=== PATIENT | male | born 1940 | race Hispanic/Latino ===

== ENCOUNTER 2016-07-17 20:07 | Inpatient (IN) | payer MEDICARE, OTHER ==
[~2016-07-17] VITALS: Ht 170.2 cm; Wt 62.0 kg
[~2016-07-17 20:07] MED LIST: KLO5T PO; MEGE40TA PO; METO25TA99 PO; QUET50TA PO
[2016-07-17 20:12] VITALS: BP 133/76; PULSE 96; O2SAT 96
[2016-07-17 20:48] LABS: BASOPHILS % (AUTO) 0 % (0-3); EOSINOPHILS % (AUTO) 0 % (0-5); MONOCYTES % (AUTO) 2.5 % (4-12); Mean Corpuscular Hemoglobin 32.3 pg (27.0-35.0); Mean Corpuscular Volume 93.6 fL (81-100); NEUTROPHILS % (AUTO) 94.9 % (40-74); Platelet Count 216 bil/L (150-400)
[2016-07-17 21:18] LABS: TROPONIN T < 0.010 ug/L (0.0-0.011)
--- NOTE | 2016-07-17 21:44 | ED.REPORT ---
HPI-Chest Pain 40 and Over Date of Service Jul 17, 2016 ED Provider: Toño Dickerson MD Patient is a 76 year old male with a history of hypertension, depression, and rectal adenocarcinoma status post diverting loop ileostomy in September 2013, and previous hospital admissions for hyponatremia and dehydration who presents to the ED complaining of increased weakness, fatigue, and shortness of breath onset 2 days ago. Per the patient's son, the patient had trouble walking, and is unbalanced when ambulating. Patient has had a decreased appetite, with decreased PO intake. Patient states that he has a productive cough, dizziness, and generalized myalgia. Patient reports dysuria and admits that he has previously had a UTI. The patient's son reports that the patient's is also currently ill and then the patient started feeling unwell. Patient has previously been admitted to the hospital under similar circumstances due to hyponatremia and dehydration, most recently in March 2016. Nursing Notes Stated Complaint: SHORTNESS OF BREATH Chief Complaint: General Complaint Nursing Notes Reviewed: Yes Allergies: Coded Allergies: No Known Allergies (Unverified , 07/18/16) Scheduled Megestrol Acetate (Megestrol Acetate) 40 Mg Tablet 40 MG PO BID Metoprolol Succinate ER (Metoprolol Succinate ER) 25 Mg Tab.er.24h 25 MG PO DAILY Quetiapine Fumarate (Seroquel) 50 Mg Tablet 50 MG PO BID Scheduled PRN Clonazepam (Clonazepam) 0.5 Mg Tab 0.25-0.5 MG PO BID PRN PRN For Anxiety General Time Seen by MD: 21:41 Chief Complaint Shortness of breath Hx Obtained From: Patient, Son Arrived By: Walk-in Sudden in Onset?: No Recent Healthcare: No recent hospitalization, Recent doctor visit Past Medical History Past Medical History 1. Rectal adenocarcinoma status post diverting loop ileostomy in September 2013 2. Recurrent episodes of hyponatremia and dehydration 3. Hypertension. 4. Hyperlipidemia. 5. Depression. 6. Anxiety. 7. Insomnia. 8. Pulmonary asbestosis. 9. Bilateral pleural plaques. 10. GERD 11. Hearing problems COPD arthritis gastroenteritis Past Surgical History Abdominal surgery for colon and rectal cancer. Hernia repair x2. Left hand surgery. Reports: Appendectomy Smoking History Current Every Day Smoker Social History Alcohol Use: "Social" Drug Use: Denies drug use Other Social History: Good social support, Local resident Ambulatory Status Independent Review of Systems Review of Systems Note: decreased appetite Respiratory: Reports: Prod cough, clear, Shortness of breath Musculoskeletal: Reports: Myalgia Neurologic: Reports: Problem walking Complete sys rev & neg: except as marked. Male: Reports Dysuria Physical Exam Initial Vital Signs Vital Signs (First) Date Time Temp Pulse Resp B/P Pulse Ox O2 Delivery O2 Flow Rate FiO2 07/17/16 20:12 96 133/76 96 Room Air 07/17/16 23:24 17 Initial VS: Reviewed, Vital signs normal General/Constitutional: Awake, Alert, No acute distress Distress / Hydration: Positive: Dehydration mild appears disheveled Respiratory / Chest: Atraumatic Diminished Breath Sounds: Positive: Decreased bilateral Wheezing / Retractions: Positive: Wheezing expiratory deep breathing causes cough Cardiovascular: Heart rate NL, Regular rhythm, Heart sounds NL Abdomen: Atraumatic, Soft, Non-tender Neck: Atraumatic, Supple Back: Atraumatic, No CVA tenderness Lower Extremity / Pelvis / MS: Atraumatic, No swelling, No edema Skin: Atraumatic, Color NL, No rash, Warm, Dry Neurologic: Oriented X3, Speech NL, No motor deficits, No sensory deficits Psychiatric: Affect NL, Mood NL Head / Eyes: Atraumatic, Normocephalic, PERRL, EOMI ENT: Atraumatic, Airway patent, Mucous membranes moist Upper Extremity / MS: Atraumatic, No swelling, No edema Interpretation & Diagnostics Lab Results Interpretation Result Diagram: 07/18/16 0505 07/18/16 0505 Test 07/17/16 20:19 07/17/16 20:25 07/17/16 23:45 Lactic Acid Level 1.0mmol/L (0.4-2.0) Troponin T < 0.010ug/L (0.0-0.011) Pro-B-Type Natriuretic Peptide 258.4pg/mL (0-486) Urine Color Yellow (YELLOW) Urine Appearance Clear (CLEAR,HAZY) Urine pH 6.0 (5.0-8.0) Urine Specific Roosevelt 1.025 (1.003-1.035) Urine Protein 30mg/dL (NEG,TRACE) Urine Glucose (UA) Negativemg/dL (NEGATIVE) Urine Ketones 15mg/dL (NEGATIVE) Urine Occult Blood Moderate (NEGATIVE) Urine Nitrite Negative (NEGATIVE) Urine Bilirubin Negative (NEGATIVE) Urine Urobilinogen Normalmg/dL (NORMAL) Urine Leukocyte Esterase Negative (NEGATIVE) Urine RBC 11-50/hpf (0-2) Urine WBC 6-10/hpf (0-5) Urine Epithelial Cells Occasional/hpf (NONE-MOD) Urine Crystals None seen (NONE SEEN) Urine Bacteria None/hpf (NONE-FEW) Urine Hyaline Casts None/lpf (NONE) Urine Granular Casts None seen (NONE SEEN) Urine Waxy Casts None seen (NONE SEEN) Urine Red Blood Cell Casts None seen (NONE SEEN) Urine White Blood Cell Casts None seen (NONE SEEN) Urine Mucus Present (None Seen) Urine Trichomonas None seen (NONE SEEN) Urine Yeast None (NONE SEEN) Urine Culture Reflexed Indicated Urine Osmolality 591mOs/kH2O (250-1200) Lab Results Interpretation: Hyponatremia ECG Interpretation ECG Interpretation: prolonged ME interval RBBB and LAFB probable left ventricular hypertrophy Interpreted by: ED physician Normal ECG Interpretation: Normal rate (91), Normal sinus rhythm X-Ray Chest Interpretation Chest Xray Interpretation: IMPRESSION: No interval change or acute disease. Chronic diffuse scarring/interstitial disease, as before. Bilateral pleural plaques. Disctated by: Tk Maher MD on 07/17/2016 at 21:22 View: Portable Interpretation / Wet Read by: Interpret - Radiologist Re-Eval/Medical Decision Med Decision/Clinical Course 76-year-old male who short of breath and weak, symptoms that are common when he gets recurrent hyponatremia. His sodium level is 126. No other significant abnormalities are found. He was given a liter of saline here and his repeat sodium was 125. He will be admitted to the hospitalist service. I attempted to contact Dr. Martinez to discuss hyponatremia treatment but he was not available. Time of Eval: 01:10 Re-Evaluation/Progress Note: Rechecked patient. Discussed results and plan for admittance. The patient understands and agrees to the plan to be admitted. All questions were addressed. Consultation #1: Referral / Consult Name: Christy Hartman DO Consulted With: Hospitalist Call Returned at: 01:05 Manager College: Agrees with eval, Agrees with plan, Accepts admit Consultation #2: Referral / Consult Name: Philippe Martinez DO Consulted With: Nephrology Requested Call at: 02:45 Note: Repeat sodium level went from 126 to 125 after 1liter of saline. Attempted to call Dr. Martinez but he did not answer and his message box was full. Counseled Regarding: Diagnosis, Lab results, Need for admission Discharge & Departure Primary Impression: Hyponatremia Additional Impression: UTI (urinary tract infection) Urinary tract infection type: site unspecified Hematuria presence: with hematuria Qualified Code: N39.0 - Urinary tract infection, site not specified Disposition: ADMITTED TO HOSPITAL (ERASED) Discharge Condition All VS Reviewed: Yes Condition: Stable Referrals: Maryjo Pope MD (PCP) [employer] Attestation Portions of this note were transcribed by Idalmis Lindquist and Tiffanie Maldonado. I, Dr. Dickerson personally performed the history, physical exam and medical decision-making; I reviewed and confirmed the accuracy of the information in the transcribed note. Signed by: Idalmis Lindquist and Cristal Silva, and 0349. copies to: Maryjo Pope MD, Toño Xiong MD Jul 17, 2016 21:44 Zoë Lindquist Jul 17, 2016 21:54 Tiffanie Maldonado Jul 17, 2016 23:24 Urine Trichomonas None seen (NONE SEEN) Urine Yeast None (NONE SEEN) Urine Culture Reflexed Indicated Lab Results Interpretation: Hyponatremia ECG Interpretation ECG Interpretation: prolonged ME interval RBBB and LAFB probable left ventricular hypertrophy Interpreted by: ED physician Normal ECG Interpretation: Normal rate (91), Normal sinus rhythm X-Ray Chest Interpretation Chest Xray Interpretation: IMPRESSION: No interval change or acute disease. Chronic diffuse scarring/interstitial disease, as before. Bilateral pleural plaques. Disctated by: Tk Maher MD on 07/17/2016 at 21:22 View: Portable Interpretation / Wet Read by: Interpret - Radiologist Re-Eval/Medical Decision Med Decision/Clinical Course 76-year-old male who short of breath and weak, symptoms that are common when he gets recurrent hyponatremia. His sodium level is 126. No other significant abnormalities are found. He was given a liter of saline here and his repeat sodium was 125. He will be admitted to the hospitalist service. I attempted to contact Dr. Martinez to discuss hyponatremia treatment but he was not available. Time of Eval: 01:10 Re-Evaluation/Progress Note: Rechecked patient. Discussed results and plan for admittance. The patient understands and agrees to the plan to be admitted. All questions were addressed. Consultation #1: Referral / Consult Name: Christy Hartman Consulted With: Hospitalist Call Returned at: 01:05 Manager College: Agrees with eval, Agrees with plan, Accepts admit Consultation #2: Referral / Consult Name: JuanPhilippe DO Consulted With: Nephrology Requested Call at: 02:45 Note: Repeat sodium level went from 126 to 125 after 1liter of saline. Attempted to call Dr. Martinez but he did not answer and his message box was full. Counseled Regarding: Diagnosis, Lab results, Need for admission Discharge & Departure Primary Impression: Hyponatremia Additional Impression: UTI (urinary tract infection) Urinary tract infection type: site unspecified Hematuria presence: with hematuria Qualified Code: N39.0 - Urinary tract infection, site not specified Disposition: ADMITTED TO HOSPITAL (ERASED) Discharge Condition All VS Reviewed: Yes Condition: Stable Referrals: Maryjo Pope MD (PCP) [employer] Attestation Portions of this note were transcribed by Idalmis Maldonado. I, Dr. Dickerson personally performed the history, physical exam and medical decision-making; I reviewed and confirmed the accuracy of the information in the transcribed note. Signed by: Cristal Chen, and 0349. copies to: Maryjo Ppoe MD, Howard L MD Jul 17, 2016 21:44 Zoë Lindquist Jul 17, 2016 21:54 Tiffanie Maldonado Jul 17, 2016 23:24 decision-making; I reviewed and confirmed the accuracy of the information in the transcribed note. Signed by: Cristal Chen, and 0036. copies to: Maryjo Pope MD, Toño Xiong MD Jul 17, 2016 21:44 Zoë Lindquist Jul 17, 2016 21:54 Tiffanie Maldonado Jul 17, 2016 23:24
[2016-07-17] MEDS ORDERED: 0.9% Sodium Chloride 1,000 ML IV ONE ×2 (21:55→23:40)
[2016-07-17 23:24] VITALS: BP 159/80; PULSE 94; RESP 17; O2SAT 98
[2016-07-18] VITALS (9 sets, daily range): BP systolic 139–168; BP diastolic 71–88; PULSE 49–88; RESP 14–18; O2SAT 95–99
[2016-07-18 00:12] LABS: APPEARANCE,URINE CLEAR (CLEAR,HAZY); COLOR,URINE YELLOW (YELLOW); OCCULT BLOOD,URINE MODERATE (NEGATIVE); UROBILINOGEN,URINE NORMAL (NORMAL)
--- NOTE | 2016-07-18 01:41 | PCM.HPMED ---
Subjective Date of Service Jul 18, 2016 Primary Provider: Admitting Physician: Christy Hartman DO Primary Care Physician: Maryjo Pope MD Attending Physician: Christy Hartman DO Admit Status: From the Emergency Department Chief Complaint: Nausea, vomiting, electrolyte disturbance History of Present Illness: Patient is a 76 Y/O M with hx of hyponatremia, gastroenteritis, hypertension, and COPD who presented with acute onset of dizziness, shortness of breath, dyspnea and dry cough(patient is known 1 ppd smoker with previous hx of cough) onset 2 days ago. Patient son is present in the room and was primary historian. Patient lives alone at home with his who is also ill with URI. Patients became ill first. Patient states his cough is non productive, and has associated symptoms of body aches, dysuria and painful urination with urinary retention X 2 days, and dizziness. Of note patient was hospitalized in March 2016 with a similar complaint of dizziness and dehydration. He was found to be hyponatremic at that time as well. His son states that the patient hides water in the house and drinks it when no one is watching. The patient states that he is not drinking water but rather he is drinking juice. He was instructed to drink Gatorade and ensure which he was reportedly instructed to drink in place copious amounts of water by his physician on last hospitalization. Patient states that standing up rapidly causes his dizziness to be worse. Per the patient's son, the patient has had a decreased appetite, trouble walking, and being unbalanced. Patient denies sore throat, fever, nausea, vomiting, chest pain, abdominal pain, pain of any sort, sweats, chills. Patient received 2 L normal saline in the ED. Urine culture has been ordered. A call was placed in the ED to on-call orthopedic nurse practitioner. Return call pending on admit Vital Signs: Pulse 96, respiratory rate 17, blood pressure 159/80, map 106, 98% room air Hemogram showed: H/H 13.6/39.4 mildly low, white blood cell count 6.8, 94.9% neutrophils. Chemistry panel showed: Sodium 126 low, potassium 4.1, chloride 91, CO2 16, BUN/ creatinine 14/1.22, GFR 61, glucose 160, lactic acid 1.0, AST 23, ALT 11, proBNP 258.4. Troponin was 0.010 UA was significant for 15 ketones, moderate occult blood, RBCs 11-50 per high- powered field, white blood cells 6-10 per high-powered field, urine mucus, urine epithelial cells occasional, otherwise negative UA. CXR no interval change or acute disease. Chronic diffuse scarring/interstitial disease as seen before. Bilateral pleural plaques. ECG showed: Normal sinus rhythm rate of 91, prolonged HI interval, right bundle branch block, left anterior fascicular block, probable left ventricular hypertrophy as read by ED physician. Review of Systems: A comprehensive review of systems was conducted and was negative except as mentioned in history of present illness. Allergies Coded Allergies: No Known Allergies (Unverified , 07/18/16) Home Medications Metoprolol Succinate ER (Metoprolol Succinate ER) 25 Mg Tab.er.24h 25 MG PO DAILY PRN Clonazepam (Clonazepam) 0.5 Mg Tab 0.25-0.5 MG PO BID PRN PRN For Anxiety PMH 1. Rectal adenocarcinoma status post diverting loop ileostomy in September 2013 2. Recurrent episodes of hyponatremia and dehydration 3. Hypertension. 4. Hyperlipidemia. 5. Depression. 6. Anxiety. 7. Insomnia. 8. Pulmonary asbestosis. 9. Bilateral pleural plaques. 10. GERD 11. Hearing problems COPD arthritis gastroenteritis Surgical History Abdominal surgery for colon and rectal cancer. With diverging ileostomy, and now status post reversal. Hernia repair x2. Left hand surgery. Reports: Appendectomy Family History Patient's father had Hypertension Social History Hx Alcohol Use: No Hx Substance Use: No Hx Tobacco Use: Yes (3/4 PPD HX OF 60+ YRS) Smoking Status: Current Every Day Smoker (smokes a pack per day) Exam Vital Signs Vital Sign - Last Date Time Temp Pulse Resp B/P Pulse Ox O2 Delivery O2 Flow Rate FiO2 07/17/16 23:24 94 17 159/80 98 Room Air Intake and Output 07/17/16 07/17/16 07/18/16 Cumulative From/Thru 15:00 23:00 07:00 07/17/16 20:30 - 07/17/16 23:49 Intake Total 1000 ml 1000 ml 2000 ml Balance 1000 ml 1000 ml 2000 ml Intake IV Total 1000 ml 1000 ml 2000 ml Exam General: Patient is alert and oriented, and coughing a dry smoker's type cough intermittently. Patient does not appear to be in respiratory distress. HEENT: NC/AT, eyes, PERRLA, EOMI, neck, soft supple, no adenopathy, no JVD, no masses, no thyromegaly, throat mucous membranes pink and moist, edentulous, no erythema, no exudates, no tonsillar swelling, no uvular deviation. Lungs: Crackles in the lung bases otherwise normal lung sounds, no wheezes, no rhonchi, no use of accessory muscles of respiration, adequate air movement, moderate respiratory effort. Heart: Regular rate and rhythm, no murmur, S1-S2 present, no rub, no click, no distant heart sounds, Abdomen: Soft, nontender, nondistended, bowel sounds active, no rebound, no guarding, status post surgical scars present on the abdomen Genitourinary: No CVA tenderness, no suprapubic tenderness, no Rocha Extremities: Muscle strength, 5 out of 5 upper/lower extremity and symmetric laterally, reflexes 2 out of 4 upper/lower extremity and symmetric bilaterally, pulses equal and symmetric upper/lower extremity including radial and dorsalis pedis, no edema Neurologic: Grossly neurologically intact, speaking in full sentences, inhalers 2 through 12 intact bilaterally no focal neurological signs, [id number], [id number]. Skin: Warm, dry, intact, no edema Lab and Diagnostics Result Diagram: 07/17/16202407/17/162024 Assessment & Plan # Acute onset dizziness in the context of Hypochloremic Hyponatremia, present on admission, active -Patient reports a recurrent episodes of dizziness -ECG showed: Normal sinus rhythm rate of 91, prolonged HI interval, right bundle branch block, left anterior fascicular block, probable left ventricular hypertrophy as read by ED physician. -Patient has a history of hyponatremia on previous admission in March 2016 -Serum sodium 126, repeat serum sodium 125, potassium 41, chloride 91, creatinine 1.22,lactic acid 1.0 -Serum osmolality, urine osmolality, urine sodium ordered and pending -We will water restrict for now. -A call was placed to on-call orthopedic nurse practitioner -Recommend follow-up with nephrology in the morning after serum osmolality and urine osmolality and urine sodium return. # Acute upper respiratory tract infection, present on admission, active -Physical exam significant for bilateral crackles. -Patient states he has had upper respiratory infection the past 2 days with dry cough, shortness of breath, dyspnea, dizziness, and body aches. He is was sick first and now he is sick. -Chest x-ray no interval change or acute disease. Chronic diffuse scarring/ interstitial disease as seen before. Bilateral pleural plaques. -Ordered and pending are viral PCR, influenza A and B screen, strep pneumo and Legionella urine antigen, MRSA screen, calcitonin -We will wait on start IV Ceftriaxone 1 gm, and -We will add Azithromycin for atypical coverage (EKG QTC 467) -We will plan to stop IV antibiotics if patient's workup returns negative # Dysuria, acute, present on admission, active -Patient complains of 2 days onset of painful urination with urinary retention evidenced by dribbling. -Patient was straight cathed in the ED and UA was significant for 15 ketones, moderate occult blood, RBCs 11-50 per high-powered field, white blood cells 6- 10 per high-powered field, urine mucus, urine epithelial cells occasional, otherwise negative UA. -Urine culture is pending -IV abx as above -We will switch to oral by mouth antibiotics if patient's respiratory panel returns negative # Hypoglycemia, present on admission, active - Glucose 160 - We will continue to monitor # Anemia, present on admission, active - Patient has a mild anemia with H/H 13.6/39.4 - We will continue to monitor # Hypertension. - Continue home medication metoprolol # Hyperlipidemia. # Depression/Anxiety. # Insomnia. # Pulmonary asbestosis. # Bilateral pleural plaques. # GERD # Hearing problems # COPD Disposition: Admitted to in patient service with expected length of stay greater than 2 days, secondary to severity of presenting symptoms, treatment plan, complexity of clinical work up, and risk of adverse events. CODE STATUS: Full code PCP: Maryjo Pope DVT PE prophylaxis: SubQ heparin Q8H Contact: Josue Gao [phone] Patient received 2 L normal saline in the ED. Urine culture has been ordered. A call was placed in the ED to on-call orthopedic nurse practitioner. Pain Evaluation: Adequate Pain Control VTE Prophylaxis: Sub-Q Heparin (Unfractionated) Resuscitation Status: CPR: Attempt Resuscitation Attending Statement The patient was seen and examined together with house staff on 07/18/2016 and I agree with the history, exam and plan as outlined in the note above. Heriberto Marshall DO Jul 18, 2016 01:41 Christy Hartman DO Jul 18, 2016 05:09
[2016-07-18] MEDS ORDERED: Alum-Mag Hydrox-Simeth 30 mL Suspension PO PRN (02:45)
[2016-07-18] MEDS ORDERED: Polyethylene Glycol (PEG) 17 Gm Powder PO PRN (02:45)
[2016-07-18] MEDS ORDERED: Ondansetron 2 mg/mL 2 mL Inj IVPUSH PRN (02:45)
--- NOTE | 2016-07-18 04:44 | NUR ---
ADMIT; 76 yr old male to room 1026 with c/o general malaise, no appetite for the past 3 days. is also sick. See admit screens.
--- NOTE | 2016-07-18 04:50 | NUR ---
PER LAB; rapid influenza screen positive for Type B flu. Resp. precautions.
[2016-07-18] MEDS: cefTRIAXone Inj 1,000 MG in Dextrose 5% Minibag Plus 50 ML IV SCH (05:10)
[2016-07-18 05:14] LABS: BASOPHILS % (AUTO) 0 % (0-3); EOSINOPHILS % (AUTO) 0 % (0-5); MONOCYTES % (AUTO) 7.2 % (4-12); Mean Corpuscular Hemoglobin 32.3 pg (27.0-35.0); Mean Corpuscular Volume 93.9 fL (81-100); NEUTROPHILS % (AUTO) 86.3 % (40-74); Platelet Count 176 bil/L (150-400)
--- NOTE | 2016-07-18 05:49 | NUR ---
LAB; lab called floor. Need more urine for Strep pneumoniae. Pt aware. Will pass on to day shift rn.
[2016-07-18 05:59] LABS: Magnesium 1.7 mg/dL (1.6-2.6)
--- NOTE | 2016-07-18 06:02 | DRSVH ---
PROCEDURE: X-RAY CHEST ONE VIEW, PORTABLE ([id number]) INDICATIONS: COUGH, SHORTNESS OF BREATH TECHNIQUE: One view of the chest was acquired. COMPARISON: [facility], CR, XR CHEST 1VW (PORTABLE), 03/28/2016, 18:33. FINDINGS: Surgical changes and devices: None. Lungs and pleura: No pleural effusions or pneumothorax. Lungs are clear. There is diffuse scarring as before Mediastinum: Mediastinal contours appear normal. Heart size is normal. Bones and chest wall: No suspicious bony lesions. Overlying soft tissues appear unremarkable. IMPRESSION: No interval change or acute disease Chronic diffuse scarring/interstitial disease, as before. Bilateral pleural plaques. Dictated by: Tk Maher M.D. on 07/17/2016 at 21:22 Approved by: Tk Maher M.D. on 07/17/2016 at 21:23
--- NOTE | 2016-07-18 06:12 | NUR ---
ACTIVITY; alarm on- found heading to bathroom and voided before a ua was able to be obtained.
[2016-07-18] MEDS: Azithromycin Inj 500 MG in Dextrose 5% w/Vial Mate 250 ML IV SCH (08:15)
[2016-07-18] MEDS: Heparin 5,000 Unit/mL Inj SUBQ SCH ×2 (08:53→16:30)
[2016-07-18] MEDS ORDERED: [UNRECOGNIZED DRUG - CODE] PO (10:59)
--- NOTE | 2016-07-18 11:01 | NUR ---
Med Rec Med Rec completed with info collected from pt's through [id number]. [id number] reported pt. had not picked up his meds: Metoprolol Succ since December 2015 and Cholesterol powder since August 2015. She further stated that, "he's supposed to take these medications." Primary nurse, Pete Ackerman RN aware of medication non-adherent issue.
--- NOTE | 2016-07-18 14:49 | NUR ---
Social Work-initial assessment: Data:See initial assessment. Pt is a 76 y/o male who was admitted on 07/18/16 for vomiting, hypnatremia per H&P. Pt's insurance is [email or web address] and and PCP is Maryjo Pope MD. EMR Reviewed. Pt's readmission score is not available. SW met with pt at bedside to discuss discharge planning, SW role explained. Pt is alert and oriented x3. Pt resides at home with spouse in a single level home with no stairs where pt remains independent with basic ADLs. Pt uses no DME and drives POV. Pt has HH with [facility] and no SNF history. Prefers [facility]. Pt states he has not completed DPOA/ advanced directive and SW provided info to review and complete. Pt states he has residential care and no VA benefits. Pt's family to provide transport home at discharge. SW provided phone number and plan on white board in room. SW will continue to follow. Assessment:Pt who resides at home and is independent at baseline. Plan:Pt to likely discharge home via POV, rule out HH. SW will continue to follow. BEVERLEY James Addendum: 07/18/16 at 1452 by GEE VERNON SS Amended: Links added.
--- NOTE | 2016-07-18 18:07 | NUR ---
headache pt complains of headache pain up to 4/10 Tylenol 650mg "feels better"
[2016-07-18] MEDS: diphenhydrAMINE 25 mg Capsule PO SCH (20:11)
[2016-07-19] VITALS (7 sets, daily range): BP systolic 146–188; BP diastolic 69–88; PULSE 55–65; RESP 17–18; O2SAT 94–99
[2016-07-19] MEDS: Heparin 5,000 Unit/mL Inj SUBQ SCH ×3 (00:14→16:30)
--- NOTE | 2016-07-19 00:58 | PCM.PNMED ---
Subjective Date of Service Jul 19, 2016 Subjective Patient is beginning to feel a little bit better. However he still has a very bad cough and shortness of breath. Exam Vital Signs Vital Sign - Last Date Time Temp Pulse Resp B/P Pulse Ox O2 Delivery O2 Flow Rate FiO2 07/19/16 00:45 36.6 57 18 151/83 99 Room Air Intake and Output 07/18/16 07/18/16 07/19/16 Cumulative From/Thru 15:00 23:00 07:00 07/17/16 20:30 - 07/18/16 20:15 Intake Total 983 ml 3333 ml Output Total 700 ml 700 ml Balance 283 ml 2633 ml Intake Oral 723 ml 923 ml IV Total 260 ml 2410 ml Output Urine Total 700 ml 700 ml # Voids 2 # Bowel Movements 2 3 Exam General: Patient is lying supine in bed in no apparent distress. HEENT: Head is atraumatic and normocephalic. Eyes: Pupils are equally round and reactive to light and accommodation. Extraocular muscles are intact. Sclera are white, anicteric. Subconjunctival mucosa is pink. Ears and nose are unremarkable. Oropharynx: There is no mucosal lesions, there is no thrush, there is no pharyngitis. Neck: Is supple, there are no nodes, or masses or tenderness. Chest: Is significant for diffuse bilateral crackles and wheezing. Heart: Rate, rhythm is regular. There is no murmur, rub or gallop. Abdomen: Good bowel sounds are present. Abdomen is soft, nontender, no organomegaly or masses were appreciated. Extremities: Are symmetrical and well perfused. There is no edema, there is no cellulitis, no rash. Neurologic: There are no focal neurological deficits. Cranial nerves II through XII are intact. There are no sensory or motor deficits. Psychiatric: Patients mood is calm and shows no sign of agitation. Genital: Deferred Rectal: Deferred Lab and Diagnostics Result Diagram: 07/18/1650407/18/16504 Microbiology Specimen: [id number] Collected: 07/18/16 Status: COMP Req#: [id number] Received: 07/18/16 Source: RANDOM Sp Desc : Subm Dr: Heriberto Marshall DO Ordered: STREP PNEUMO AG Comments: Collected by Nurse/Unit? Y/N Y Procedure Result Verified Site Microbiology KADI STREP PNEUMONIAE AG URINE Final 07/18/16-1014 STREP PNEUMO AG POSITIVE Tests performed directly on clinical specimens are intended for screening purposes only and should augment, not replace, culture procedures Please Note: Streptococcus pneumoniae vaccine may cause false positive results in urine in the 48 hours following injection. Hence, it is recommended that the Alere Strep pneumoniae Antigen testing not be performed within five days of receiving the S. pneumoniae vaccine Organism 1 STREP PNEUMONIAE ANTIGEN DATE CALLED: 07/18/16 TIME CALLED: 1013 FLOOR/DOCTOR: JOSEPH Ivory INFLUENZA B PCR Final 07/18/16-937 Organism 1 INFLUENZA B INFLUENZA B PCR DETECTED TIME CALLED: 934 DATE CALLED: 07/18/16 FLOOR/DOCTOR: JOSEPH Ivory CALLED BY: CONSUELO The performance of the film array RVP has not been established in individuals who have received the influenza vaccine. Recent administration of a nasal influenza vaccine may cause false positive results for Influenza A and/or Influenza B. Name: JULIOCESAR FRANKLIN V Age/Sex: 76/M Attend Dr: Christy Hartman Acct: [id number] Unit: [id number] Status: ADM IN Location: [facility] [place] 3026-1 Re07/18/16 Disch: Specimen: [id number] Collected: 07/18/16 Status: COMP Req#: [id number] Received: 07/18/16 Source: NOSE Sp Desc : Subm Dr: Heriberto Marshall DO Ordered: KADI MRSA PCR Comments: Collected by Nurse/Unit? Y/N Y Procedure Result Verified Site Microbiology KADI MRSA PCR Final 07/18/16-0840 MRSA BY PCR NEGATIVE REFERENCE INTERVAL NEGATIVE Assessment & Plan Patient is a 76 Y/O M with hx of hyponatremia, gastroenteritis, hypertension, and COPD who presented with acute onset of dizziness, shortness of breath, dyspnea and dry cough(patient is known 1 ppd smoker with previous hx of cough) onset 2 days ago. Patient son is present in the room and was primary historian. Patient lives alone at home with his who is also ill with URI. Patients became ill first. Patient states his cough is non productive, and has associated symptoms of body aches, dysuria and painful urination with urinary retention X 2 days, and dizziness. Of note patient was hospitalized in March 2016 with a similar complaint of dizziness and dehydration. He was found to be hyponatremic at that time as well. His son states that the patient hides water in the house and drinks it when no one is watching. The patient states that he is not drinking water but rather he is drinking juice. He was instructed to drink Gatorade and ensure which he was reportedly instructed to drink in place copious amounts of water by his physician on last hospitalization. Patient states that standing up rapidly causes his dizziness to be worse. Per the patient's son, the patient has had a decreased appetite, trouble walking, and being unbalanced. Patient denies sore throat, fever, nausea, vomiting, chest pain, abdominal pain, pain of any sort, sweats, chills. The patient was admitted to the hospitalist service. # Acute onset dizziness in the context of Hypochloremic Hyponatremia, present on admission, active -Patient reports a recurrent episodes of dizziness -ECG showed: Normal sinus rhythm rate of 91, prolonged [place] interval, right bundle branch block, left anterior fascicular block, probable left ventricular hypertrophy as read by ED physician. -Patient has a history of hyponatremia on previous admission in March 2016 -Serum sodium 126, repeat serum sodium 125, potassium 41, chloride 91, creatinine 1.22,lactic acid 1.0 -Serum osmolality, urine osmolality, urine sodium ordered and pending -We will water restrict for now. -A call was placed to on-call linux system engineer -Recommend follow-up with nephrology in the morning after serum osmolality and urine osmolality and urine sodium return. # Acute upper respiratory tract infection, present on admission, active - Appears to be secondary to influenza B and possibly a secondary bacterial infection due to Streptococcus pneumonia due to positive urinary antigen. We will start Tamiflu dosing per pharmacy. -Physical exam significant for bilateral crackles. -Patient states he has had upper respiratory infection the past 2 days with dry cough, shortness of breath, dyspnea, dizziness, and body aches. He is was sick first and now he is sick. This is likely due to influenza B along with a secondary bacterial infection. -Chest x-ray no interval change or acute disease. Chronic diffuse scarring/ interstitial disease as seen before. Bilateral pleural plaques. -Ordered and pending are viral PCR, influenza A and B screen, strep pneumo and Legionella urine antigen, MRSA screen, calcitonin -We will continue IV Ceftriaxone 1 gm, and -We will continue Azithromycin for atypical coverage (EKG QTC 467) -We will plan to stop IV antibiotics if patient's workup returns negative # Dysuria, acute, present on admission, active -Patient complains of 2 days onset of painful urination with urinary retention evidenced by dribbling. -Patient was straight cathed in the ED and UA was significant for 15 ketones, moderate occult blood, RBCs 11-50 per high-powered field, white blood cells 6- 10 per high-powered field, urine mucus, urine epithelial cells occasional, otherwise negative UA. -Urine culture is pending -IV abx as above # Hypoglycemia, present on admission, active - Glucose 160 - We will continue to monitor # Anemia, present on admission, active - Patient has a mild anemia with H/H 13.6/39.4 - We will continue to monitor # Hypertension. - Continue home medication metoprolol # Hyperlipidemia. # Depression/Anxiety. # Insomnia. # Pulmonary asbestosis. # Bilateral pleural plaques. # GERD # Hearing problems # COPD Disposition: Patient is likely to be her another 48-72 hours for further evaluation and treatment of the above. CODE STATUS: Full code PCP: Maryjo Pope DVT PE prophylaxis: SubQ heparin Q8H Contact: Sima, Josue Perera [phone] Patient received 2 L normal saline in the ED. Urine culture has been ordered. A call was placed in the ED to on-call linux system engineer. VTE Prophylaxis: Sub-Q Heparin (Unfractionated) VTE Mechanical Devices: Intermittant Pneumatic CD Resuscitation Status: CPR: Attempt Resuscitation BolivarCruz MD Jul 19, 2016 00:58
[2016-07-19] MEDS: cefTRIAXone Inj 1,000 MG in Dextrose 5% Minibag Plus 50 ML IV SCH (03:57)
--- NOTE | 2016-07-19 04:54 | NUR ---
PT ACTIVITY/COMFORT Pt has not slept very much during shift, despite HS tylenol and benadryl orders. Pt has been up to BR, walking around in room. Pt steady on feet. Pt intermittently disoriented, pt thinks he is in his motel at times. Pt very forgetful. Pt has been asked to use urinal, but continues to urinate in toilet. Pt has c/o generalized aches. Pt asked staff to turn off bed relief on bed, because "the sound and movement" were bothering him. Pt educated that this would not be ideal for his skin. Foam mattress not available at this time. Pt opted to sleep on pull out bed. Pt constantly either wanting more blankets or wanting blankets taken off. Pt states he is cold, pt has been afebrile, pt refuses to keep door closed to prevent draft d/t claustrophia. Staff have been in pts room frequently in attempt to make him more comfortable. Continue to monitor. Call light in reach. Intentional rounding.
[2016-07-19 06:56] LABS: BASOPHILS % (AUTO) 0 % (0-3); EOSINOPHILS % (AUTO) 1.1 % (0-5); MONOCYTES % (AUTO) 8.1 % (4-12); Mean Corpuscular Hemoglobin 31.9 pg (27.0-35.0); Mean Corpuscular Volume 92.7 fL (81-100); NEUTROPHILS % (AUTO) 81.9 % (40-74); Platelet Count 165 bil/L (150-400)
[2016-07-19 07:17] LABS: Magnesium 1.9 mg/dL (1.6-2.6)
[2016-07-19] MEDS: Azithromycin Inj 500 MG in Dextrose 5% w/Vial Mate 250 ML IV SCH (08:29)
--- NOTE | 2016-07-19 11:13 | NUR ---
Gave access to Maria Luz and BUTTON MAKER AND INSTALLER notified Maria Luz liaison patient is currently here.
[2016-07-19] MEDS: MeTOProlol XL 25 mg ER24 Tablet PO SCH (14:57)
--- NOTE | 2016-07-19 16:52 | NUR ---
confusion daughter in-law states that pt is repeating and asking the same questions over and over. pt seems forgetful but easily re-oriented. aware of pt's confusion.
[2016-07-19] MEDS: diphenhydrAMINE 25 mg Capsule PO SCH (21:12)
--- NOTE | 2016-07-19 23:27 | PCM.PNMED ---
Subjective Date of Service Jul 19, 2016 Subjective Patient is exhibiting signs of dementia with repeating the same questions over and over again according to his daughter in law who was in the room for quite some time today. He also was repeating the same request to the nurse Pete today. Patient pulled off his own quality assurance monitor chassis. And this was left off for patient comfort. Patientspecific complaints and is beginning to feel a little bit better. He is still coughing and still having shortness of breath. Exam Vital Signs Vital Sign - Last Date Time Temp Pulse Resp B/P Pulse Ox O2 Delivery O2 Flow Rate FiO2 07/19/16 20:42 36.9 57 18 188/88 98 Room Air Intake and Output 07/18/16 07/18/16 07/19/16 Cumulative From/Thru 15:00 23:00 07:00 07/17/16 20:30 - 07/19/16 06:46 Intake Total 983 ml 465 ml 3798 ml Output Total 700 ml 700 ml Balance 283 ml 465 ml 3098 ml Intake Oral 723 ml 400 ml 1323 ml IV Total 260 ml 65 ml 2475 ml Output Urine Total 700 ml 700 ml # Voids 2 # Bowel Movements 2 3 6 Exam General: Patient is lying supine in bed in no apparent distress. HEENT: Head is atraumatic and normocephalic. Eyes: Pupils are equally round and reactive to light and accommodation. Extraocular muscles are intact. Sclera are white, anicteric. Subconjunctival mucosa is pink. Ears and nose are unremarkable. Oropharynx: There is no mucosal lesions, there is no thrush, there is no pharyngitis. Neck: Is supple, there are no nodes, or masses or tenderness. Chest: Is somewhat clearer however there are still a few rales and some wheezing evident. Heart: Rate, rhythm is regular. There is no new murmur, rub or gallop. Abdomen: Good bowel sounds are present. Abdomen is soft, nontender, no organomegaly or masses were appreciated. Extremities: Are symmetrical and well perfused. There is no edema, there is no cellulitis, no rash. Neurologic: There are no focal neurological deficits. Cranial nerves II through XII are intact. There are no sensory or motor deficits. Psychiatric: Patients mood is calm and shows no sign of agitation. Genital: Deferred Rectal: Deferred Lab and Diagnostics Result Diagram: 07/19/1662907/19/1630 Microbiology Specimen: [id number] Collected: 07/18/16 Status: LINDA Loera#: [id number] Received: 07/18/16 Source: RANDOM Sp Desc : Subm Dr: Heriberto Marshall DO Ordered: STREP PNEUMO AG Comments: Collected by Nurse/Unit? Y/N Y Procedure Result Verified Site Microbiology KADI STREP PNEUMONIAE AG URINE Final 07/18/16-1013 STREP PNEUMO AG POSITIVE Tests performed directly on clinical specimens are intended for screening purposes only and should augment, not replace, culture procedures Please Note: Streptococcus pneumoniae vaccine may cause false positive results in urine in the 48 hours following injection. Hence, it is recommended that the Alere Strep pneumoniae Antigen testing not be performed within five days of receiving the S. pneumoniae vaccine Organism 1 STREP PNEUMONIAE ANTIGEN DATE CALLED: 07/18/16 TIME CALLED: 1013 FLOOR/DOCTOR: TANO/SENAIT Ivory INFLUENZA B PCR Final 07/18/16-937 Organism 1 INFLUENZA B INFLUENZA B PCR DETECTED TIME CALLED: 934 DATE CALLED: 07/18/16 FLOOR/DOCTOR: [facility] [place]/SENAIT Ivory CALLED BY: CONSUELO The performance of the film array RVP has not been established in individuals who have received the influenza vaccine. Recent administration of a nasal influenza vaccine may cause false positive results for Influenza A and/or Influenza B. Name: JULIOCESAR FRANKLIN V Age/Sex: 76/M Attend Dr: Christy Hartman Acct: [id number] Unit: [id number] Status: ADM IN Location: [facility] [place] 3026-1 Re07/18/16 Disch: Specimen: [id number] Collected: 07/18/16 Status: COMP Req#: [id number] Received: 07/18/16 Source: NOSE Sp Desc : Subm Dr: Heriberto Marshall DO Ordered: KADI MRSA PCR Comments: Collected by Nurse/Unit? Y/N Y Procedure Result Verified Site Microbiology KADI MRSA PCR Final 07/18/16-0840 MRSA BY PCR NEGATIVE REFERENCE INTERVAL NEGATIVE X-Rays, CTs and MRIs PROCEDURE: X-RAY CHEST ONE VIEW, PORTABLE ([id number]) INDICATIONS: COUGH, SHORTNESS OF BREATH TECHNIQUE: One view of the chest was acquired. COMPARISON: [facility], CR, XR CHEST 1VW (PORTABLE), 03/28/2016, 18 :33. FINDINGS: Surgical changes and devices: None. Lungs and pleura: No pleural effusions or pneumothorax. Lungs are clear. There is diffuse scarring as before Mediastinum: Mediastinal contours appear normal. Heart size is normal. Bones and chest wall: No suspicious bony lesions. Overlying soft tissues appear unremarkable. IMPRESSION: No interval change or acute disease Chronic diffuse scarring/interstitial disease, as before. Bilateral pleural plaques. Dictated by: Tk Maher M.D. on 07/17/2016 at 21:22 Approved by: Tk Maher M.D. on 07/17/2016 at 21:23 Assessment & Plan Patient is a 76 Y/O M with hx of hyponatremia, gastroenteritis, hypertension, and COPD who presented with acute onset of dizziness, shortness of breath, dyspnea and dry cough(patient is known 1 ppd smoker with previous hx of cough) onset 2 days ago. Patient son is present in the room and was primary historian. Patient lives alone at home with his who is also ill with URI. Patients became ill first. Patient states his cough is non productive, and has associated symptoms of body aches, dysuria and painful urination with urinary retention X 2 days, and dizziness. Of note patient was hospitalized in March 2016 with a similar complaint of dizziness and dehydration. He was found to be hyponatremic at that time as well. His son states that the patient hides water in the house and drinks it when no one is watching. The patient states that he is not drinking water but rather he is drinking juice. He was instructed to drink Gatorade and ensure which he was reportedly instructed to drink in place copious amounts of water by his physician on last hospitalization. Patient states that standing up rapidly causes his dizziness to be worse. Per the patient's son, the patient has had a decreased appetite, trouble walking, and being unbalanced. Patient denies sore throat, fever, nausea, vomiting, chest pain, abdominal pain, pain of any sort, sweats, chills. The patient was admitted to the hospitalist service. # Acute onset dizziness in the context of Hypochloremic Hyponatremia, present on admission, active and going -Patient reports a recurrent episodes of dizziness which has improved -ECG showed: Normal sinus rhythm rate of 91, prolonged [place] interval, right bundle branch block, left anterior fascicular block, probable left ventricular hypertrophy as read by ED physician. -Patient has a history of hyponatremia on previous admission in March 2016 -Serum osmolality, urine osmolality, urine sodium ordered and pending -We will water restrict for now. -A call was placed to on-call end maker -Recommend follow-up with nephrology in the morning after serum osmolality and urine osmolality and urine sodium return. # Acute upper respiratory tract infection, present on admission, active - Appears to be secondary to influenza B and possibly a secondary bacterial infection due to Streptococcus pneumonia due to positive urinary antigen. We will start Tamiflu dosing per pharmacy. -Physical exam significant for bilateral crackles. -Patient states he has had upper respiratory infection the past 2 days with dry cough, shortness of breath, dyspnea, dizziness, and body aches. He is was sick first and now he is sick. This is likely due to influenza B along with a secondary bacterial infection. -Chest x-ray no interval change or acute disease. Chronic diffuse scarring/ interstitial disease as seen before. Bilateral pleural plaques. -We will continue IV Ceftriaxone 1 gm, and -We will continue Azithromycin for atypical coverage (EKG QTC 467) -We will repeat chest x-ray in a.m. # Dysuria, acute, present on admission, active -Patient complains of 2 days onset of painful urination with urinary retention evidenced by dribbling. -Patient was straight cathed in the ED and UA was significant for 15 ketones, moderate occult blood, RBCs 11-50 per high-powered field, white blood cells 6- 10 per high-powered field, urine mucus, urine epithelial cells occasional, otherwise negative UA. -Urine culture is pending -IV abx as above # Hypoglycemia, present on admission, active - Glucose stable - We will continue to monitor # Anemia, present on admission, active - Patient has a mild anemia with H/H 13.6/39.4 - We will continue to monitor # Hypertension. - Continue home medication metoprolol # Hyperlipidemia. # Depression/Anxiety. # Insomnia. # Pulmonary asbestosis. # Bilateral pleural plaques. # GERD # Hearing problems # COPD Disposition: Patient is likely to be her another 24-48 hours for further evaluation and treatment of the above. CODE STATUS: Full code DVT PE prophylaxis: SubQ heparin Q8H Contact: Sima, Son Trever [phone] Pain Evaluation: Adequate Pain Control VTE Prophylaxis: Sub-Q Heparin (Unfractionated) VTE Mechanical Devices: Venous Foot Pump Resuscitation Status: CPR: Attempt Resuscitation Cruz Leggett MD Jul 19, 2016 23:27 Cruz Leggett MD Jul 19, 2016 23:27
[2016-07-20] MEDS: Heparin 5,000 Unit/mL Inj SUBQ SCH ×3 (00:30→17:18)
--- NOTE | 2016-07-20 03:29 | NUR ---
MENTATION/PT ACTIVITY Pt continues to be forgetful, w/ intermittent confusion. Pt has been easily reoriented. Pt has been less restless and appears to have slept more tonight. Scheduled evening medications, and prn clonazepam have been administered. Pt did have c/o headache and generalized achiness. PRN tylenol and tamiflu administered. No other c/o. Continue to monitor. Call light in reach. Intentional rounding.
[2016-07-20 04:06] VITALS: BP 146/84; PULSE 62; RESP 16; O2SAT 99
[2016-07-20] MEDS: cefTRIAXone Inj 1,000 MG in Dextrose 5% Minibag Plus 50 ML IV SCH (04:10)
[2016-07-20 06:39] LABS: BASOPHILS % (AUTO) 0.4 % (0-3); EOSINOPHILS % (AUTO) 3.3 % (0-5); MONOCYTES % (AUTO) 10.8 % (4-12); Mean Corpuscular Hemoglobin 32.2 pg (27.0-35.0); Mean Corpuscular Volume 93.6 fL (81-100); NEUTROPHILS % (AUTO) 62.8 % (40-74); Platelet Count 173 bil/L (150-400)
[2016-07-20 07:06] LABS: Magnesium 1.9 mg/dL (1.6-2.6); Phosphorus 2.6 mg/dL (2.5-4.9)
[2016-07-20] MEDS: MeTOProlol XL 25 mg ER24 Tablet PO SCH (08:30)
[2016-07-20] MEDS: Azithromycin Inj 500 MG in Dextrose 5% w/Vial Mate 250 ML IV SCH (08:34)
[2016-07-20 08:50] VITALS: BP 142/82; PULSE 66; RESP 17; O2SAT 93
[2016-07-20 13:01] VITALS: BP 155/74; PULSE 59; RESP 18; O2SAT 95
[2016-07-20] MEDS: diphenhydrAMINE 25 mg Capsule PO SCH (20:01)
[2016-07-20 20:03] VITALS: BP 161/83; PULSE 59; RESP 18; O2SAT 99
--- NOTE | 2016-07-21 00:20 | PCM.PNMED ---
Subjective Date of Service Jul 21, 2016 Subjective After having Seroquel last night the patient slept much better and today is much more lucid and like a totally different person. He realizes that he still does not feel well enough to go home today but hopes to go home tomorrow. Exam Vital Signs Vital Sign - Last Date Time Temp Pulse Resp B/P Pulse Ox O2 Delivery O2 Flow Rate FiO2 07/20/16 20:03 36.7 59 18 161/83 99 Room Air Intake and Output 07/20/16 07/20/16 07/21/16 Cumulative From/Thru 14:59 22:59 06:59 07/17/16 20:30 - 07/20/16 20:04 Intake Total 445 ml 1150 ml 7198 ml Output Total 725 ml 1650 ml Balance 445 ml 425 ml 5548 ml Intake Oral 1150 ml 3859 ml IV Total 445 ml 3339 ml Output Urine Total 725 ml 1650 ml # Voids 9 # Bowel Movements 8 Exam General: Patient was seen ambulating in the hallway with his [id number] and is much more lucid today and no longer confused after a good night sleep. HEENT: Head is atraumatic and normocephalic. Eyes: Pupils are equally round and reactive to light and accommodation. Extraocular muscles are intact. Sclera are white, anicteric. Subconjunctival mucosa is pink. Ears and nose are unremarkable. Oropharynx: There is no mucosal lesions, there is no thrush, there is no pharyngitis. Neck: Is supple, there are no nodes, or masses or tenderness. Chest: Is somewhat clearer again today. There are still a few adventitious sounds bilaterally. Heart: Rate, rhythm is regular. There is no new murmur, rub or gallop. Abdomen: Good bowel sounds are present. Abdomen is soft, nontender, no organomegaly or masses were appreciated. Extremities: Are symmetrical and well perfused. There is no edema, there is no cellulitis, no rash. Neurologic: There are no focal neurological deficits. Cranial nerves II through XII are intact. There are no sensory or motor deficits. Psychiatric: Patients mood is calm and shows no sign of agitation. Genital: Deferred Rectal: Deferred Lab and Diagnostics Result Diagram: 07/20/16 0603 07/20/16 0603 Microbiology Specimen: [id number] Collected: 07/18/16 Status: LINDA Remichelle#: [id number] Received: 07/18/16 Source: RANDOM Sp Desc : Subm Dr: Heriberto Marshall DO Ordered: STREP PNEUMO AG Comments: Collected by Nurse/Unit? Y/N Y Procedure Result Verified Site Microbiology KADI STREP PNEUMONIAE AG URINE Final 07/18/16-1013 STREP PNEUMO AG POSITIVE Tests performed directly on clinical specimens are intended for screening purposes only and should augment, not replace, culture procedures Please Note: Streptococcus pneumoniae vaccine may cause false positive results in urine in the 48 hours following injection. Hence, it is recommended that the Alere Strep pneumoniae Antigen testing not be performed within five days of receiving the S. pneumoniae vaccine Organism 1 STREP PNEUMONIAE ANTIGEN DATE CALLED: 07/18/16 TIME CALLED: 1013 FLOOR/DOCTOR: JOSEPH Ivory INFLUENZA B PCR Final 07/18/16-937 Organism 1 INFLUENZA B INFLUENZA B PCR DETECTED TIME CALLED: 934 DATE CALLED: 07/18/16 FLOOR/DOCTOR: TANO/SENAIT Ivory CALLED BY: CONSUELO The performance of the film array RVP has not been established in individuals who have received the influenza vaccine. Recent administration of a nasal influenza vaccine may cause false positive results for Influenza A and/or Influenza B. Name: JULIOCESAR FRANKLIN V Age/Sex: 76/M Attend Dr: Christy Hartman Acct: [id number] Unit: [id number] Status: ADM [place] [facility] [place] Re07/18/16 Disch: Specimen: [id number] Collected: 07/18/16 Status: COMP Req#: [id number] Received: 07/18/16 Source: NOSE Sp Desc : Subm Dr: Heriberto Marshall DO Ordered: KADI MRSA PCR Comments: Collected by Nurse/Unit? Y/N Y Procedure Result Verified Site Microbiology KADI MRSA PCR Final 07/18/16-0840 MRSA BY PCR NEGATIVE REFERENCE INTERVAL NEGATIVE X-Rays, CTs and MRIs PROCEDURE: X-RAY CHEST ONE VIEW, PORTABLE ([id number]) INDICATIONS: COUGH, SHORTNESS OF BREATH TECHNIQUE: One view of the chest was acquired. COMPARISON: [facility], CR, XR CHEST 1VW (PORTABLE), 03/28/2016, 18 :33. FINDINGS: Surgical changes and devices: None. Lungs and pleura: No pleural effusions or pneumothorax. Lungs are clear. There is diffuse scarring as before Mediastinum: Mediastinal contours appear normal. Heart size is normal. Bones and chest wall: No suspicious bony lesions. Overlying soft tissues appear unremarkable. IMPRESSION: No interval change or acute disease Chronic diffuse scarring/interstitial disease, as before. Bilateral pleural plaques. Dictated by: Tk Maher M.D. on 07/17/2016 at 21:22 Approved by: Tk Maher M.D. on 07/17/2016 at 21:23 Assessment & Plan Patient is a 76 Y/O M with hx of hyponatremia, gastroenteritis, hypertension, and COPD who presented with acute onset of dizziness, shortness of breath, dyspnea and dry cough(patient is known 1 ppd smoker with previous hx of cough) onset 2 days ago. Patient son is present in the room and was primary historian. Patient lives alone at home with his who is also ill with URI. Patients became ill first. Patient states his cough is non productive, and has associated symptoms of body aches, dysuria and painful urination with urinary retention X 2 days, and dizziness. Of note patient was hospitalized in March 2016 with a similar complaint of dizziness and dehydration. He was found to be hyponatremic at that time as well. His son states that the patient hides water in the house and drinks it when no one is watching. The patient states that he is not drinking water but rather he is drinking juice. He was instructed to drink Gatorade and ensure which he was reportedly instructed to drink in place copious amounts of water by his physician on last hospitalization. Patient states that standing up rapidly causes his dizziness to be worse. Per the patient's son, the patient has had a decreased appetite, trouble walking, and being unbalanced. Patient denies sore throat, fever, nausea, vomiting, chest pain, abdominal pain, pain of any sort, sweats, chills. The patient was admitted to the hospitalist service. # Acute onset dizziness in the context of Hypochloremic Hyponatremia, present on admission, active but improved -Patient reports a recurrent episodes of dizziness which has improved. Patient is now able to ambulate -ECG showed: Normal sinus rhythm rate of 91, prolonged IA interval, right bundle branch block, left anterior fascicular block, probable left ventricular hypertrophy as read by ED physician. -Patient has a history of hyponatremia on previous admission in March 2016 -Serum osmolality, urine osmolality, urine sodium ordered and pending -We will to new water restriction for now. -Recommend follow-up with nephrology. # Acute upper respiratory tract infection, present on admission, active - Appears to be secondary to influenza B and possibly a secondary bacterial infection due to Streptococcus pneumonia due to positive urinary antigen. We will start Tamiflu dosing per pharmacy. -Physical exam significant for bilateral crackles. -Patient states he has had upper respiratory infection the past 2 days with dry cough, shortness of breath, dyspnea, dizziness, and body aches. He is was sick first and now he is sick. This is likely due to influenza B along with a secondary bacterial infection. -Chest x-ray no interval change or acute disease. Chronic diffuse scarring/ interstitial disease as seen before. Bilateral pleural plaques. -We will continue IV Ceftriaxone 1 gm, and -We will continue Azithromycin for atypical coverage (EKG QTC 467) -We will repeat chest x-ray in a.m. # Dysuria, acute, present on admission, active -Patient complains of 2 days onset of painful urination with urinary retention evidenced by dribbling. -Patient was straight cathed in the ED and UA was significant for 15 ketones, moderate occult blood, RBCs 11-50 per high-powered field, white blood cells 6- 10 per high-powered field, urine mucus, urine epithelial cells occasional, otherwise negative UA. -Urine culture is pending -IV abx as above # Hypoglycemia, present on admission, active - Glucose stable - We will continue to monitor # Anemia, present on admission, active - Patient has a mild anemia with H/H 13.6/39.4 - We will continue to monitor # Hypertension. - Continue home medication metoprolol # Hyperlipidemia. # Depression/Anxiety. # Insomnia. # Pulmonary asbestosis. # Bilateral pleural plaques. # GERD # Hearing problems # COPD Disposition: Patient is likely to be her another 24-48 hours for further evaluation and treatment of the above. CODE STATUS: Full code DVT PE prophylaxis: SubQ heparin Q8H Contact: Sima, Son Trever [phone] Pain Evaluation: Adequate Pain Control VTE Prophylaxis: Sub-Q Heparin (Unfractionated) VTE Mechanical Devices: Venous Foot Pump Resuscitation Status: CPR: Attempt Resuscitation La GrandeCruz MD Jul 21, 2016 00:20
[2016-07-21] MEDS: Heparin 5,000 Unit/mL Inj SUBQ SCH ×2 (00:45→10:06)
--- NOTE | 2016-07-21 02:40 | NUR ---
DIARRHEA Pt has been having frequent diarrhea stools tonight. Pt denies stomach pain, denies nausea. Stools are liquid, darker brown, no foul odor. paged to inquire if sample of stool wanted to send for C. diff. Orders rec'd, stool sample collected, sent to lab. Pt now placed on enteric precautions to r/o C. diff. Pt states, "this is horrible, can't you give me something to stop the diarrhea." Pt explained that we need to wait until stool results come back before any anti-diarrheal medication can be given. Pt also c/o sore, raw rectum r/t frequent stools. Pt given barrier cream. Continue to monitor. Call light in reach. Intentional rounding. Addendum: 07/21/16 at 0623 by REGINA TOLENTINO RN Stool sample sent neg for C.diff. paged for orders for prn anti-diarrheal. Awaiting orders/call back at this time. Addendum: 07/21/16 at 0629 by REGINA TOLENTINO RN Orders rec'd for immodium. First dose given. Continue to monitor.
[2016-07-21] MEDS: cefTRIAXone Inj 1,000 MG in Dextrose 5% Minibag Plus 50 ML IV SCH (04:11)
[2016-07-21 04:24] VITALS: BP 142/91; PULSE 54; RESP 16; O2SAT 96
[2016-07-21 08:54] VITALS: BP 153/73; PULSE 64; RESP 19; O2SAT 95
[2016-07-21 09:27] LABS: BASOPHILS % (AUTO) 0.6 % (0-3); EOSINOPHILS % (AUTO) 3.8 % (0-5); MONOCYTES % (AUTO) 13.5 % (4-12); Mean Corpuscular Hemoglobin 31.8 pg (27.0-35.0); Mean Corpuscular Volume 93.3 fL (81-100); NEUTROPHILS % (AUTO) 61.9 % (40-74); Platelet Count 175 bil/L (150-400)
[2016-07-21 09:42] LABS: Magnesium 1.9 mg/dL (1.6-2.6)
[2016-07-21] MEDS: Azithromycin Inj 500 MG in Dextrose 5% w/Vial Mate 250 ML IV SCH (10:04)
[2016-07-21] MEDS: MeTOProlol XL 25 mg ER24 Tablet PO SCH (10:04)
[2016-07-21 13:04] VITALS: BP 145/82; PULSE 59; RESP 18; O2SAT 93
--- NOTE | 2016-07-21 15:23 | PCM.DIMED ---
Discharge Instructions Date of Service Jul 21, 2016 Dates of Hospitalization Jul 18, 2016 at 00:53 Discharge Diagnosis Discharge Diagnosis Influenza B and Strep Pneumonia bronchitis Diet Heart Healthy Activity No restrictions (Patient may return to his usual activity gradually as tolerated.) Call your provider Fever or Chills, Shortness of breath, Bleeding, Chest pain, Vomitting, Excessive diarrhea, Weakness (unilateral) Patient Instructions Follow-up Provider: Maryjo Pope MD Follow-up with PCP in: 1 week Cruz Leggett MD Jul 21, 2016 15:23
--- NOTE | 2016-07-21 15:26 | NUR ---
Social Work: Discharge Data: Pt is on day 3 of hospitalization. EMR reviewed. D/C orders are in. No d/c planning needs. MUSIC COORDINATOR will continue to follow if needs arise. Assessment: Pt who is independent at baseline. Plan: Pt will d/c home via POV today. No d/c planning needs. MUSIC COORDINATOR will continue to follow if needs arise. BEVERLEY Rene
[2016-07-21] MEDS ORDERED: ZIT250 PO (15:34)
[2016-07-21] MEDS ORDERED: QUET25TA73 PO (15:34)
[2016-07-21] MEDS ORDERED: NICO1PAT6 TOPICAL (15:34)
[2016-07-21] MEDS ORDERED: OSEL30CA PO (15:34)
[2016-07-21] MEDS ORDERED: CEFD300C3 PO (15:34)
[2016-07-21] MEDS ORDERED: POLY17PO6 PO (15:34)
--- NOTE | 2016-07-21 15:53 | NUR ---
BUD signed @ 1215 PM
--- NOTE | 2016-07-21 16:24 | NUR ---
Discharge Reviewed discharge paperwork, care notes, and medications with waiver signed. IV DCd intact, all belongings with pt. Pt given PO tylenol for headache, no other s/sx of distress. Pt refused WC and wished to walk out of hospital with Son and Daughter in-law, pt strong and steady on feet.
--- NOTE | 2016-07-22 00:24 | PCM.DC.MED ---
Discharge Summary Date of Service Jul 21, 2016 Dates of Hospitalization Date of Hospital Admission Jul 18, 2016 at 00:53 Date of Discharge: Jul 21, 2016 Providers: Admitting Physician: Christy Hartman DO Primary Care Physician: Maryjo Pope MD Attending Physician: Christy Hartman DO Diagnosis at Time of Discharge Diagnosis at Time of Discharge Influenza B and Strep Pneumonia bronchitis Procedures XRay, CTs & MRIs PROCEDURE: X-RAY CHEST ONE VIEW, PORTABLE ([id number]) INDICATIONS: COUGH, SHORTNESS OF BREATH TECHNIQUE: One view of the chest was acquired. COMPARISON: [facility], CR, XR CHEST 1VW (PORTABLE), 03/28/2016, 18 :33. FINDINGS: Surgical changes and devices: None. Lungs and pleura: No pleural effusions or pneumothorax. Lungs are clear. There is diffuse scarring as before Mediastinum: Mediastinal contours appear normal. Heart size is normal. Bones and chest wall: No suspicious bony lesions. Overlying soft tissues appear unremarkable. IMPRESSION: No interval change or acute disease Chronic diffuse scarring/interstitial disease, as before. Bilateral pleural plaques. Dictated by: Tk Maher M.D. on 07/17/2016 at 21:22 Approved by: Tk Maher M.D. on 07/17/2016 at 21:23 Brief History Patient is a 76 Y/O M with hx of hyponatremia, gastroenteritis, hypertension, and COPD who presented with acute onset of dizziness, shortness of breath, dyspnea and dry cough(patient is known 1 ppd smoker with previous hx of cough) onset 2 days ago. Patient son is present in the room and was primary historian. Patient lives alone at home with his who is also ill with URI. Patients became ill first. Patient states his cough is non productive, and has associated symptoms of body aches, dysuria and painful urination with urinary retention X 2 days, and dizziness. Of note patient was hospitalized in March 2016 with a similar complaint of dizziness and dehydration. He was found to be hyponatremic at that time as well. His son states that the patient hides water in the house and drinks it when no one is watching. The patient states that he is not drinking water but rather he is drinking juice. He was instructed to drink Gatorade and ensure which he was reportedly instructed to drink in place copious amounts of water by his physician on last hospitalization. Patient states that standing up rapidly causes his dizziness to be worse. Per the patient's son, the patient has had a decreased appetite, trouble walking, and being unbalanced. Patient denies sore throat, fever, nausea, vomiting, chest pain, abdominal pain, pain of any sort, sweats, chills. The patient was admitted to the hospitalist service. Hospital Course Patient is a 76 Y/O M with hx of hyponatremia, gastroenteritis, hypertension, and COPD who presented with acute onset of dizziness, shortness of breath, dyspnea and dry cough(patient is known 1 ppd smoker with previous hx of cough) onset 2 days ago. Patient son is present in the room and was primary historian. Patient lives alone at home with his who is also ill with URI. Patients became ill first. Patient states his cough is non productive, and has associated symptoms of body aches, dysuria and painful urination with urinary retention X 2 days, and dizziness. Of note patient was hospitalized in March 2016 with a similar complaint of dizziness and dehydration. He was found to be hyponatremic at that time as well. His son states that the patient hides water in the house and drinks it when no one is watching. The patient states that he is not drinking water but rather he is drinking juice. He was instructed to drink Gatorade and ensure which he was reportedly instructed to drink in place copious amounts of water by his physician on last hospitalization. Patient states that standing up rapidly causes his dizziness to be worse. Per the patient's son, the patient has had a decreased appetite, trouble walking, and being unbalanced. Patient denies sore throat, fever, nausea, vomiting, chest pain, abdominal pain, pain of any sort, sweats, chills. The patient was admitted to the hospitalist service. # Acute onset dizziness in the context of Hypochloremic Hyponatremia, present on admission, active but improved -Patient reports a recurrent episodes of dizziness which has improved. Patient is now able to ambulate -ECG showed: Normal sinus rhythm rate of 91, prolonged NC interval, right bundle branch block, left anterior fascicular block, probable left ventricular hypertrophy as read by ED physician. -Patient has a history of hyponatremia on previous admission in March 2016 -Serum osmolality, urine osmolality, urine sodium ordered and pending -We will to new water restriction for now. -Recommend follow-up with nephrology. # Acute upper respiratory tract infection, present on admission, active - Appears to be secondary to influenza B and possibly a secondary bacterial infection due to Streptococcus pneumonia due to positive urinary antigen. We will start Tamiflu dosing per pharmacy. -Physical exam significant for bilateral crackles. -Patient states he has had upper respiratory infection the past 2 days with dry cough, shortness of breath, dyspnea, dizziness, and body aches. He is was sick first and now he is sick. This is likely due to influenza B along with a secondary bacterial infection. -Chest x-ray no interval change or acute disease. Chronic diffuse scarring/ interstitial disease as seen before. Bilateral pleural plaques. -We will continue IV Ceftriaxone 1 gm, and -We will continue Azithromycin for atypical coverage (EKG QTC 467) -We will repeat chest x-ray in a.m. # Dysuria, acute, present on admission, active -Patient complains of 2 days onset of painful urination with urinary retention evidenced by dribbling. -Patient was straight cathed in the ED and UA was significant for 15 ketones, moderate occult blood, RBCs 11-50 per high-powered field, white blood cells 6- 10 per high-powered field, urine mucus, urine epithelial cells occasional, otherwise negative UA. -Urine culture is pending -IV abx as above # Hypoglycemia, present on admission, active - Glucose stable - We will continue to monitor # Anemia, present on admission, active - Patient has a mild anemia with H/H 13.6/39.4 - We will continue to monitor # Hypertension. - Continue home medication metoprolol # Hyperlipidemia. # Depression/Anxiety. # Insomnia. # Pulmonary asbestosis. # Bilateral pleural plaques. # GERD # Hearing problems # COPD Disposition: Patient is to be discharged home today. CODE STATUS: Full code DVT PE prophylaxis: SubQ heparin Q8H Contact: Sima, Josue Perera [phone] Exam Vital Signs (Last) Date Time Temp Pulse Resp B/P Pulse Ox O2 Delivery O2 Flow Rate FiO2 07/21/16 13:04 36.7 59 18 145/82 93 Room Air Exam General: Patient was seen ambulating in the hallway with his [id number] and is much more lucid today and no longer confused after a good night sleep. HEENT: Head is atraumatic and normocephalic. Eyes: Pupils are equally round and reactive to light and accommodation. Extraocular muscles are intact. Sclera are white, anicteric. Subconjunctival mucosa is pink. Ears and nose are unremarkable. Oropharynx: There is no mucosal lesions, there is no thrush, there is no pharyngitis. Neck: Is supple, there are no nodes, or masses or tenderness. Chest: Is somewhat clearer again today. There are still a few adventitious sounds bilaterally. Heart: Rate, rhythm is regular. There is no new murmur, rub or gallop. Abdomen: Good bowel sounds are present. Abdomen is soft, nontender, no organomegaly or masses were appreciated. Extremities: Are symmetrical and well perfused. There is no edema, there is no cellulitis, no rash. Neurologic: There are no focal neurological deficits. Cranial nerves II through XII are intact. There are no sensory or motor deficits. Psychiatric: Patients mood is calm and shows no sign of agitation. Genital: Deferred Rectal: Deferred Test 07/17/16 20:19 07/17/16 20:25 07/17/16 23:45 07/18/16 02:49 Lactic Acid Level 1.0mmol/L (0.4-2.0) Troponin T < 0.010ug/L (0.0-0.011) Pro-B-Type Natriuretic Peptide 258.4pg/mL (0-486) Urine Color Yellow (YELLOW) Urine Appearance Clear (CLEAR,HAZY) Urine pH 6.0 (5.0-8.0) Urine Specific [place] 1.025 (1.003-1.035) Urine Protein 30mg/dL (NEG,TRACE) Urine Glucose (UA) Negativemg/dL (NEGATIVE) Urine Ketones 15mg/dL (NEGATIVE) Urine Occult Blood Moderate (NEGATIVE) Urine Nitrite Negative (NEGATIVE) Urine Bilirubin Negative (NEGATIVE) Urine Urobilinogen Normalmg/dL (NORMAL) Urine Leukocyte Esterase Negative (NEGATIVE) Urine RBC 11-50/hpf (0-2) Urine WBC 6-10/hpf (0-5) Urine Epithelial Cells Occasional/hpf (NONE-MOD) Urine Crystals None seen (NONE SEEN) Urine Bacteria None/hpf (NONE-FEW) Urine Hyaline Casts None/lpf (NONE) Urine Granular Casts None seen (NONE SEEN) Urine Waxy Casts None seen (NONE SEEN) Urine Red Blood Cell Casts None seen (NONE SEEN) Urine White Blood Cell Casts None seen (NONE SEEN) Urine Mucus Present (None Seen) Urine Trichomonas None seen (NONE SEEN) Urine Yeast None (NONE SEEN) Urine Culture Reflexed Indicated Urine Osmolality 591mOs/kH2O (250-1200) Urine Random Sodium 151mEq/L Test 07/18/16 05:05 07/18/16 09:00 07/20/16 06:03 07/21/16 09:08 Osmolality 263 (275-300) Procalcitonin 0.51ng/mL (0.00-0.08) Urine Legionella pneumophilia Ag Negative (Negative) Phosphorus Level 2.6mg/dL (2.5-4.9) White Blood Count 3.4th/mm3 (3.8-10.1) Red Blood Count 4.00mil/mm3 (4.40-5.80) Hemoglobin 12.7g/dL (13.8-17.2) Hematocrit 37.3% (41.0-50.0) Mean Corpuscular Volume 93.3fL (81-100) Mean Corpuscular Hemoglobin 31.8pg (27.0-35.0) Mean Corpuscular Hemoglobin Concent 34.0% (32.0-37.0) Red Cell Distribution Width 14.9% (12.3-15.4) Platelet Count 175bil/L (150-400) Neutrophils (%) (Auto) 61.9% (40-74) Lymphocytes (%) (Auto) 19.6% (14-46) Monocytes (%) (Auto) 13.5% (4-12) Eosinophils (%) (Auto) 3.8% (0-5) Basophils (%) (Auto) 0.6% (0-3) Sodium Level 132mEq/L (134-144) Potassium Level 3.8mEq/L (3.5-5.2) Chloride Level 97mEq/L (97-108) Carbon Dioxide Level 22mmol/L (18-29) Blood Urea Nitrogen 9mg/dL (8-27) Creatinine 1.25mg/dL (0.76-1.27) Estimat Glomerular Filtration Rate 60mL/min (>59) Glucose Level 87mg/dL (60-99) Calcium Level 9.0mg/dL (8.5-10.1) Magnesium Level 1.9mg/dL (1.6-2.6) Total Bilirubin 0.3mg/dL (0.0-1.2) Aspartate Amino Transf (AST/SGOT) 27U/L (0-50) Alanine Aminotransferase (ALT/SGPT) 13U/L (0-44) Alkaline Phosphatase 61U/L (25-160) Total Protein 6.0g/dL (6.4-8.4) Albumin 3.6g/dL (3.4-5.0) Microbiology Results Specimen: [id number] Collected: 07/18/16 Status: COMP Req#: [id number] Received: 07/18/16 Source: RANDOM Sp Desc : Subm Dr: Heriberto Marshall DO Ordered: STREP PNEUMO AG Comments: Collected by Nurse/Unit? Y/N Y Procedure Result Verified Site Microbiology KADI STREP PNEUMONIAE AG URINE Final 07/18/16-1014 STREP PNEUMO AG POSITIVE Tests performed directly on clinical specimens are intended for screening purposes only and should augment, not replace, culture procedures Please Note: Streptococcus pneumoniae vaccine may cause false positive results in urine in the 48 hours following injection. Hence, it is recommended that the Alere Strep pneumoniae Antigen testing not be performed within five days of receiving the S. pneumoniae vaccine Organism 1 STREP PNEUMONIAE ANTIGEN DATE CALLED: 07/18/16 TIME CALLED: 1013 FLOOR/DOCTOR: JOSEPH Ivory INFLUENZA B PCR Final 07/18/16-937 Organism 1 INFLUENZA B INFLUENZA B PCR DETECTED TIME CALLED: 934 DATE CALLED: 07/18/16 FLOOR/DOCTOR: JOSEPH Ivory CALLED BY: CONSUELO The performance of the film array RVP has not been established in individuals who have received the influenza vaccine. Recent administration of a nasal influenza vaccine may cause false positive results for Influenza A and/or Influenza B. Name: JULIOCESAR FRANKLIN V Age/Sex: 76/M Attend Dr: Christy Hartman Acct: [id number] Unit: [id number] Status: ADM IN Location: [facility] [place] 3026-1 Re07/18/16 Disch: Specimen: [id number] Collected: 07/18/16 Status: COMP Req#: [id number] Received: 07/18/16 Source: NOSE Sp Desc : Subm Dr: Heriberto Marshall DO Ordered: KADI MRSA PCR Comments: Collected by Nurse/Unit? Y/N Y Procedure Result Verified Site Microbiology KADI MRSA PCR Final 07/18/16-0840 MRSA BY PCR NEGATIVE REFERENCE INTERVAL NEGATIVE Discharge Medications Discharge Medications Azithromycin (Zithromax) 250 Mg Tablet 250 MG PO DAILY Prescribed by: KIAH LEGGETT MD Cefdinir (Cefdinir) 300 Mg Capsule 300 MG PO BID Prescribed by: KIAH LEGGETT MD Cholesterol (Cholesterol) 100 Gm Powder 100 GM PO DAILY (Reported) Metoprolol Succinate ER (Metoprolol Succinate ER) 25 Mg Tab.er.24h 25 MG PO DAILY (Reported) Nicotine 21 mg/24 hr Patch (Nicotine 21 mg/24 hr Patch) 1 Each Patch.td24 1 PATCH TOPICAL DAILY Prescribed by: KIAH LEGGETT MD Oseltamivir Phosphate (Tamiflu) 30 Mg Capsule 30 MG PO BID Prescribed by: KIAH LEGGETT MD Quetiapine Fumarate (Quetiapine Fumarate) 25 Mg Tablet 50 MG PO HS Prescribed by: KIAH LEGGETT MD As needed Polyethylene Glycol 3350 (Miralax) 17 Gm Powd.pack 17 GM PO DAILY PRN PRN For Constipation Prescribed by: KIAH LEGGETT MD Followup Plan Disposition: Patient is being discharged home. Discharge Diet: Heart Healthy Discharge Activity: No restrictions (Patient may return to his usual activity gradually as tolerated.) Follow-up Provider: Maryjo Pope MD Follow-up with PCP in: 1 week Time spent Time spent on discharging this patient was greater than 35 minutes, over half of which was involved in counseling and coordination of care. Cruz Leggett MD Jul 22, 2016 00:24
== END 2016-07-21 16:24 | disposition home or self-care (01) | DRG 194 ==
LOC: SED 20:07 → OBSVTOIN 07-18 00:53 → MPC 07-18 00:53
PROVIDERS: ADMIT Internal Medicine; ATTEND Internal Medicine
DX: J10.1 Influenza due to other identified influenza virus with other respiratory manifestations (principal); E87.1 Hypo-osmolality and hyponatremia; I10 Essential (primary) hypertension; E78.5 Hyperlipidemia, unspecified; F32.9 Major depressive disorder, single episode, unspecified; F17.210 Nicotine dependence, cigarettes, uncomplicated; J44.9 Chronic obstructive pulmonary disease, unspecified; D64.9 Anemia, unspecified; K21.9 Gastro-esophageal reflux disease without esophagitis; E16.2 Hypoglycemia, unspecified; R30.0 Dysuria; G47.00 Insomnia, unspecified; B97.89 Other viral agents as the cause of diseases classified elsewhere; J40 Bronchitis, not specified as acute or chronic; B95.3 Streptococcus pneumoniae as the cause of diseases classified elsewhere

== ENCOUNTER 2016-09-27 13:01 | Inpatient (IN) | payer OTHER, MEDICARE ==
[~2016-09-27] VITALS: Ht 170.2 cm; Wt 63.8 kg
[~2016-09-27 13:01] MED LIST changes: +CEFD300C3 PO; -KLO5T PO; -MEGE40TA PO; +NICO1PAT6 TOPICAL; +OSEL30CA PO; +POLY17PO6 PO; +QUET25TA73 PO; -QUET50TA PO; +ZIT250 PO; +[UNRECOGNIZED DRUG - CODE] PO
[2016-09-27 13:04] VITALS: BP 161/88; PULSE 68; RESP 16; O2SAT 99
[2016-09-27 13:43] LABS: BASOPHILS % (AUTO) 0.1 % (0-3); EOSINOPHILS % (AUTO) 0.3 % (0-5); MONOCYTES % (AUTO) 5.4 % (4-12); Mean Corpuscular Hemoglobin 31.7 pg (27.0-35.0); Mean Corpuscular Volume 93.6 fL (81-100); NEUTROPHILS % (AUTO) 91.2 % (40-74); Platelet Count 237 bil/L (150-400)
[2016-09-27 14:04] LABS: Magnesium 1.8 mg/dL (1.6-2.6)
[2016-09-27 14:05] LABS: INR 0.96 ratio
--- NOTE | 2016-09-27 14:27 | ED.REPORT ---
HPI-NVD Date of Service Sep 27, 2016 ED Provider: Amy Oden History of Present Illness: left side abd pain . started Monday. diarrhea is ongoing, patient feels it is worse. primary care is Dr. Pope. vomiting started today. 11/17 pain. patient afebrile initially but danilo a fever while in the ER Nursing Notes Stated Complaint: BACK PAIN/ DIARRHEA Chief Complaint: General Complaint Nursing Notes Reviewed: Yes Allergies: Coded Allergies: No Known Allergies (Unverified , 07/18/16) Scheduled PRN Acetaminophen (Acetaminophen) 325 Mg Capsule 975 MG PO ONCE PRN PRN For Pain General Time Seen by MD: 14:26 Chief Complaint Nausea, Vomiting, Abd pain, constant Hx Obtained From: Patient Symptom Duration: Since onset Past Medical History Past Medical History 1. Rectal adenocarcinoma status post diverting loop ileostomy in September 2013 2. Recurrent episodes of hyponatremia and dehydration 3. Hypertension. 4. Hyperlipidemia. 5. Depression. 6. Anxiety. 7. Insomnia. 8. Pulmonary asbestosis. 9. Bilateral pleural plaques. 10. GERD 11. Hearing problems COPD arthritis gastroenteritis Past Surgical History Abdominal surgery for colon and rectal cancer. Hernia repair x2. Left hand surgery. Reports: Appendectomy Smoking History Current Every Day Smoker Social History Alcohol Use: "Social" Drug Use: Denies drug use Other Social History: Good social support, Local resident Occupation lives with 09/27/2016 Ambulatory Status Independent Review of Systems Review of Systems Note: hard of hearing Basic Review of Systems Eyes: Vision NL, No discharge Hematologic: No bleeding, No bruising Psychiatric: Normal thought content Physical Exam Initial Vital Signs Vital Signs (First) Date Time Temp Pulse Resp B/P Pulse Ox O2 Delivery O2 Flow Rate FiO2 09/27/16 13:04 36.6 68 16 161/88 99 Room Air Initial VS: Reviewed, Vital signs normal Head / Eyes: Atraumatic, Normocephalic, PERRL ENT: Mucous membranes moist, Conjunctiva normal, No scleral icterus Neck: Supple, Non-tender, Full range of motion Respiratory: Breath sounds normal, Clear to auscultation, No respiratory distress Cardiovascular: Regular rate & rhythm, Heart sounds normal, Intact distal pulses Back: No CVA tenderness Lymphatic: No lymphadenopathy Extremities: Vascular intact, Neuro intact, No swelling, No tenderness Skin: Warm, Dry, No cyanosis Neurologic: Alert, Oriented, Nonfocal Psychiatric: Mood/affect normal, Behavior normal, Normal thought content General/Constitutional: Awake, Alert, No acute distress Appearance / Presentation: Positive: Frail, Underweight Abdomen: Atraumatic, Soft, Non-tender ENT: Atraumatic, Airway patent, Mucous membranes moist, Pharynx NL, No peritonsillar abscess Respiratory / Chest: Atraumatic, Breath sounds NL, Breath sounds = bilat Cardiovascular: Heart rate NL, Regular rhythm, Heart sounds NL Interpretation & Diagnostics Interpretation & Diagnostics: INDICATIONS: vomting diarrhea, HISTORY OF ASBESTOSIS TECHNIQUE: After the administration of oral and intravenous contrast, 5 mm thick sections acquired from the lung apices to the symphysis. 5 mm coronal and sagittal reformats were performed, with additional 7 mm coronal MIP reformats through the lungs. For radiation dose reduction, the following was used: automated exposure control, adjustment of mA and/or kV according to patient size. COMPARISON: [facility], CT, CT CHEST ABD PELVIS W CON, 11/17/2015, 11:26. FINDINGS: Image quality: Excellent. CHEST: Lungs and pleura: No acute airspace opacities. No pleural effusions or pneumothorax. Central and peripheral airways appear patent and normal in caliber. Calcified pleural plaques are again identified. Mediastinum: Heart size is normal. No pericardial effusion. No mediastinal or hilar adenopathy by size criteria. Thoracic aorta and central pulmonary arteries are normal in size. Esophagus is normal in caliber. No hiatal hernia. Chest wall: No axillary or supraclavicular adenopathy by size criteria. Thyroid gland is unremarkable. ABDOMEN: Solid organs: Liver and spleen are normal in size. Punctate low attenuation hepatic foci are unchanged. Gallbladder is unremarkable. Biliary system is non dilated. Pancreas enhances normally. No adrenal nodules. Kidneys demonstrate normal size and enhancement, without hydronephrosis. Renal cysts are unchanged. Peritoneum and bowel: Bowel loops demonstrate scattered fluid filled loops of predominantly small bowel. There is marked circumferential thickening at the colonic anastomotic site as well as presacral soft tissue prominence, unchanged. Nodes and vessels: No retroperitoneal or mesenteric adenopathy by size criteria. Aorta and inferior vena cava are normal in size. Miscellaneous: Fat-containing ventral hernia is present. PELVIS: Genitourinary: Bladder wall thickness is normal. Miscellaneous: Fat-containing inguinal hernias, left greater than right are noted. Bones: There is an unchanged focus of sclerosis within the left posterior iliac bone. No vertebral body compression fractures. IMPRESSION: 1. Mild fluid filled appearance of scattered small bowel loops, which could be related to vomiting or diarrhea. 2. Calcified pleural plaques consistent with asbestosis exposure. 3. Unchanged appearance of hepatic punctate low attenuation foci, too small to definitively characterize. Dictated by: Tika Dimas M.D. on 09/27/2016 at 16:21 Lab Results Interpretation Result Diagram: 09/27/16 1326 09/27/16 1326 Test 09/27/16 13:26 09/27/16 15:39 09/27/16 16:29 White Blood Count 14.3th/mm3 (3.8-10.1) Red Blood Count 4.20mil/mm3 (4.40-5.80) Hemoglobin 13.3g/dL (13.8-17.2) Hematocrit 39.3% (41.0-50.0) Mean Corpuscular Volume 93.6fL (81-100) Mean Corpuscular Hemoglobin 31.7pg (27.0-35.0) Mean Corpuscular Hemoglobin Concent 33.8% (32.0-37.0) Red Cell Distribution Width 14.9% (12.3-15.4) Platelet Count 237bil/L (150-400) Neutrophils (%) (Auto) 91.2% (40-74) Lymphocytes (%) (Auto) 2.8% (14-46) Monocytes (%) (Auto) 5.4% (4-12) Eosinophils (%) (Auto) 0.3% (0-5) Basophils (%) (Auto) 0.1% (0-3) Prothrombin Time 10.3sec (8.1-12.5) Prothromb Time International Ratio 0.96ratio Sodium Level 131mEq/L (134-144) Potassium Level 3.4mEq/L (3.5-5.2) Chloride Level 95mEq/L (97-108) Carbon Dioxide Level 20mmol/L (18-29) Blood Urea Nitrogen 9mg/dL (8-27) Creatinine 1.03mg/dL (0.76-1.27) Estimat Glomerular Filtration Rate 75mL/min (>59) Glucose Level 125mg/dL (60-99) Calcium Level 9.8mg/dL (8.5-10.1) Magnesium Level 1.8mg/dL (1.6-2.6) Total Bilirubin 0.7mg/dL (0.0-1.2) Aspartate Amino Transf (AST/SGOT) 16U/L (0-50) Alanine Aminotransferase (ALT/SGPT) 7U/L (0-44) Alkaline Phosphatase 76U/L (25-160) Troponin T < 0.010ug/L (0.0-0.011) Total Protein 7.5g/dL (6.4-8.4) Albumin 4.0g/dL (3.4-5.0) Lipase 11U/L (13-60) Lactic Acid Level 1.1mmol/L (0.4-2.0) Urine Color Yellow (YELLOW) Urine Appearance Clear (CLEAR,HAZY) Urine pH 5.5 (5.0-8.0) Urine Specific [place] 1.020 (1.003-1.035) Urine Protein 100mg/dL (NEG,TRACE) Urine Glucose (UA) Negativemg/dL (NEGATIVE) Urine Ketones Negativemg/dL (NEGATIVE) Urine Occult Blood Negative (NEGATIVE) Urine Nitrite Negative (NEGATIVE) Urine Bilirubin Negative (NEGATIVE) Urine Urobilinogen Normalmg/dL (NORMAL) Urine Leukocyte Esterase Negative (NEGATIVE) Urine RBC 0-2/hpf (0-2) Urine WBC 0-5/hpf (0-5) Urine Epithelial Cells Few/hpf (NONE-MOD) Urine Crystals None seen (NONE SEEN) Urine Bacteria Few/hpf (NONE-FEW) Urine Hyaline Casts None/lpf (NONE) Urine Granular Casts None seen (NONE SEEN) Urine Waxy Casts None seen (NONE SEEN) Urine Red Blood Cell Casts None seen (NONE SEEN) Urine White Blood Cell Casts None seen (NONE SEEN) Urine Mucus None seen (None Seen) Urine Trichomonas None seen (NONE SEEN) Urine Yeast None (NONE SEEN) Urinalysis Comment None Urine Culture Reflexed Not indicated X-Ray Abdominal Interpretation PROCEDURE: X-RAY ACUTE ABDOMINAL SERIES ([id number]) INDICATIONS: abd pain vomiting TECHNIQUE: One view chest and two views of the abdomen were acquired. COMPARISON: [facility], , ABD ACUTE SERIES, 03/29/2014, 17:55. FINDINGS: Surgical changes and devices: None. Chest: No acute consolidation. Diffuse interstitial changes as before Heart size is normal. No pleural effusions. No pneumoperitoneum. Abdomen: There is diffuse gaseous prominence, however no definite pathologic bowel dilatation or transition point seen. There are scattered air-fluid levels No suspicious calcifications. Visualized solid organ contours appear normal. Bones: No suspicious bony lesions. Scattered discogenic changes. IMPRESSION: Diffuse gaseous bowel prominence although no definite bowel obstruction seen at this time. The patient's symptoms do not improve, recommend repeat abdominal series radiographs. Dictated by: Tk Maher M.D. on 09/27/2016 at 15:55 Approved by: Tk Maher M.D. on 09/27/2016 at 16:06 Re-Eval/Medical Decision Med Decision/Clinical Course 76 year old male with abd pain and fever, nausea and vomiting presents to the ER. No cause of fever is identified. Imaging is unremarkable. antibiotics are started, along with fever control. Patient admitted to the hospital. Discharge & Departure Impression: Primary Impression: Fever Encounter type: initial encounter Additional Impressions: Vomiting Vomiting type: unspecified Abdominal pain Disposition: ADMITTED TO HOSPITAL Referrals: Maryjo Pope MD (PCP) EDSupervising Provider for APC: Tesfaye Gray MD copies to: Maryjo Pope MD, Sue ARNP Sep 27, 2016 14:27
[2016-09-27] MEDS ORDERED: 0.9% Sodium Chloride 1,000 ML IV ONE ×2 (14:35→16:55)
[2016-09-27] MEDS ORDERED: Ondansetron 2 mg/mL 2 mL Inj IVPUSH ONE (14:50)
[2016-09-27] MEDS ORDERED: HYDROmorphone 0.5 mg/0.5 mL iSecure Syringe IVPUSH ONE (14:50)
[2016-09-27] MEDS ORDERED: Pantoprazole 4 mg/mL 10 mL Inj IVPUSH ONE (14:55)
--- NOTE | 2016-09-27 16:07 | DRSVH ---
PROCEDURE: X-RAY ACUTE ABDOMINAL SERIES ([id number]) INDICATIONS: abd pain vomiting TECHNIQUE: One view chest and two views of the abdomen were acquired. COMPARISON: [facility], , [facility] ACUTE SERIES, 03/29/2014, 17:55. FINDINGS: Surgical changes and devices: None. Chest: No acute consolidation. Diffuse interstitial changes as before Heart size is normal. No pleur al effusions. No pneumoperitoneum. Abdomen: There is diffuse gaseous prominence, however no definite pathologic bowel dilatation or higginboth[place] sition point seen. There are scattered air-fluid levels No suspicious calcifications. Visualized dimitris id organ contours appear normal. Bones: No suspicious bony lesions. Scattered discogenic changes. IMPRESSION: Diffuse gaseous bowel prominence although no definite bowel obstruction seen at this time. The patien t's symptoms do not improve, recommend repeat abdominal series radiographs. Dictated by: Tk Maher M.D. on 09/27/2016 at 15:55 Approved by: Tk Maher M.D. on 09/27/2016 at 16:06
[2016-09-27] MEDS ORDERED: HYDROmorphone 1 mg/mL Inj IVPUSH ONE (16:25)
--- NOTE | 2016-09-27 16:28 | DRSVH ---
PROCEDURE: CT CHEST, ABDOMEN AND PELVIS [facility] CONTRAST ([id number]) INDICATIONS: vomting diarrhea, HISTORY OF ASBESTOSIS TECHNIQUE: After the administration of oral and intravenous contrast, 5 mm thick sections acquired from the lung apices to the symphysis. 5 mm coronal and sagittal reformats were performed, with additional 7 mm c oronal MIP reformats through the lungs. For radiation dose reduction, the following was used: autom ated exposure control, adjustment of mA and/or kV according to patient size. COMPARISON: [facility], CT, CT CHEST ABD PELVIS W CON, 11/17/2015, 11:26. FINDINGS: Image quality: Excellent. CHEST: Lungs and pleura: No acute airspace opacities. No pleural effusions or pneumothorax. Central and p eripheral airways appear patent and normal in caliber. Calcified pleural plaques are again identifie d. Mediastinum: Heart size is normal. No pericardial effusion. No mediastinal or hilar adenopathy by size criteria. Thoracic aorta and central pulmonary arteries are normal in size. Esophagus is l in caliber. No hiatal hernia. Chest wall: No axillary or supraclavicular adenopathy by size criteria. Thyroid gland is unremarkab le. ABDOMEN: Solid organs: Liver and spleen are normal in size. Punctate low attenuation hepatic foci are unchang ed. Gallbladder is unremarkable. Biliary system is non dilated. Pancreas enhances normally. No ad renal nodules. Kidneys demonstrate normal size and enhancement, without hydronephrosis. Renal cysts are unchanged. Peritoneum and bowel: Bowel loops demonstrate scattered fluid filled loops of predominantly small ole wel. There is marked circumferential thickening at the colonic anastomotic site as well as presacral soft tissue prominence, unchanged. Nodes and vessels: No retroperitoneal or mesenteric adenopathy by size criteria. Aorta and inferior vena cava are normal in size. Miscellaneous: Fat-containing ventral hernia is present. PELVIS: Genitourinary: Bladder wall thickness is normal. Miscellaneous: Fat-containing inguinal hernias, left greater than right are noted. Bones: There is an unchanged focus of sclerosis within the left posterior iliac bone. No vertebral ole dy compression fractures. IMPRESSION: 1. Mild fluid filled appearance of scattered small bowel loops, which could be related to vomiting or diarrhea. 2. Calcified pleural plaques consistent with asbestosis exposure. 3. Unchanged appearance of hepatic punctate low attenuation foci, too small to definitively character ize. Dictated by: Tika Dimas M.D. on 09/27/2016 at 16:21 Approved by: Tika Dimas M.D. on 09/27/2016 at 16:26
[2016-09-27] MEDS ORDERED: Piperacillin-Tazo 3.375 Gm Inj 3.375 GM in Dextrose 5% Minibag Plus 50 ML IV ONE (16:50)
[2016-09-27] MEDS ORDERED: Vancomycin Inj 1,000 MG in IV Premix 1 EACH IV ONE (16:50)
[2016-09-27 16:51] LABS: APPEARANCE,URINE CLEAR (CLEAR,HAZY); COLOR,URINE YELLOW (YELLOW); OCCULT BLOOD,URINE NEGATIVE (NEGATIVE); PH,URINE 5.5 (5.0-8.0); UROBILINOGEN,URINE NORMAL (NORMAL)
[2016-09-27 17:07] VITALS: BP 189/91; PULSE 78; RESP 15; O2SAT 98
[2016-09-27] MEDS ORDERED: ACET325C PO (17:31)
[2016-09-27] MEDS ORDERED: Polyethylene Glycol (PEG) 17 Gm Powder PO PRN (17:40)
[2016-09-27] MEDS ORDERED: Heparin 5,000 Unit/mL Inj SUBQ SCH (17:40)
[2016-09-27] MEDS ORDERED: Alum-Mag Hydrox-Simeth 30 mL Suspension PO PRN (17:40)
[2016-09-27] MEDS ORDERED: Ondansetron 2 mg/mL 2 mL Inj IVPUSH PRN (17:40)
--- NOTE | 2016-09-27 19:08 | PCM.HPMED ---
Subjective Date of Service Sep 27, 2016 Primary Provider: Admitting Physician: Primary Care Physician: Maryjo Pope MD Attending Physician: Chief Complaint: Abdominal pain, nausea, vomiting, diarrhea History of Present Illness: Patient is 76-year-old male with past medical history of rectal adenocarcinoma status post surgery in September 2013, chemotherapy and radiation therapy that he finished several years ago, history of hypertension, hyperlipidemia, depression , anxiety, pulmonary asbestosis, GERD. Patient presented to emergency department with generalized weakness, abdominal pain, nausea, vomiting, loose stool. He has increased temperature 38.1, leukocytosis, hyponatremia, hypokalemia, mild normocytic anemia. His urine is normal. Patient lost weight over short period of time recently (30 pounds). CT scan of the chest abdomen and pelvis with contrast showed Mild fluid filled appearance of scattered small bowel loops, which could be related to vomiting or diarrhea, Calcified pleural plaques consistent with asbestosis exposure, Unchanged appearance of hepatic punctate low attenuation foci, too small to definitively characterize. Patient was started on IV fluids, IV vancomycin and Zosyn in the emergency department. As for now it is not clear why patient is losing weight and developed current symptoms. I will admit the patient to the hospital, continue with IV fluids, follow-up blood cultures, monitor on telemetry, replenish electrolytes, stool studies . Review of Systems: REVIEW OF SYSTEMS: GENERAL: + malaise, no fevers., SEE HPI HEENT: Negative for frequent or significant headaches NECK: Negative for lumps, goiter, pain and significant neck swelling All other reviewed and negative other than HPI. Allergies Coded Allergies: No Known Allergies (Unverified , 07/18/16) PMH Social History Hx Alcohol Use: No Hx Substance Use: No Hx Tobacco Use: Yes (3/4 PPD HX OF 60+ YRS) Smoking Status: Current Every Day Smoker Exam Vital Signs Vital Sign - Last Date Time Temp Pulse Resp B/P Pulse Ox O2 Delivery O2 Flow Rate FiO2 09/27/16 17:07 38.1 78 15 189/91 98 Room Air Exam PHYSICAL EXAM: GENERAL: Alert, moderate distress, cooperative HEAD: atraumatic, normocephalic, no bruises. EYES: LIZETH, EOMI, anicteric, able to fully open and close eyelids SKIN: Skin color normal, turgor decreased. No visible rashes or lesions. EAR, NOSE, MOUTH, THROAT: Lips, oral mucosa, tongue gums, oropharynx are dry, pink, no lesions. Ears normal appearance, no lesions. NECK: no jugulovenous distention, no carotid bruits, carotid pulse normal contour, No carotid bruit, supple, no enlarged lymph nodes appreciated; ROM normal. RESPIRATORY: Lungs clear to auscultation. Good diaphragmatic excursion. Normal percussion sound. CARDIAC: normal S1 and S2; no rubs, murmurs, or gallops; regular rate and rhythm ABDOMEN: Abdomen soft, non-tender. BS normal. No masses or organomegaly. MUSCULOSKELETAL: ROM full, muscles are not tender EXTREMITIES: no pitting edema in LE, no deformities, clubbing or skin discoloration. NEURO: Alert, oriented X 3, Sensation grossly intact., Cranial nerves II-XII intact, Grossly normal motor function. PULSES: 2+ radial,2+ carotid Lab and Diagnostics Result Diagram: 09/27/16 1326 09/27/16 1326 X-Rays, CTs and MRIs CT chest, abdomen, pelvis IMPRESSION: 1. Mild fluid filled appearance of scattered small bowel loops, which could be related to vomiting or diarrhea. 2. Calcified pleural plaques consistent with asbestosis exposure. 3. Unchanged appearance of hepatic punctate low attenuation foci, too small to definitively characterize. Assessment & Plan Patient is 76-year-old male with past medical history of rectal adenocarcinoma status post surgery in September 2013, chemotherapy and radiation therapy that he finished several years ago, history of hypertension, hyperlipidemia, depression , anxiety, pulmonary asbestosis, GERD. Patient presented to emergency department with generalized weakness, abdominal pain, nausea, vomiting, loose stool. He has increased temperature 38.1, leukocytosis, hyponatremia, hypokalemia, mild normocytic anemia. His urine is normal. Patient lost weight over short period of time recently (30 pounds). CT scan of the chest abdomen and pelvis with contrast showed Mild fluid filled appearance of scattered small bowel loops, which could be related to vomiting or diarrhea, Calcified pleural plaques consistent with asbestosis exposure, Unchanged appearance of hepatic punctate low attenuation foci, too small to definitively characterize. Patient was started on IV fluids, IV vancomycin and Zosyn in the emergency department. As for now it is not clear why patient is losing weight and developed current symptoms. I will admit the patient to the hospital, continue with IV fluids, follow-up blood cultures, monitor on telemetry, monitor and replenish electrolytes, follow-up stool studies . Disposition: discharge in 2-3 days after patient improves. Plan of care discussed with ED physician; Labs, radiology tests, Tele and ECG reviewed. Plan of care, medication side effects, home medication, diagnostic procedures and available alternatives were discussed and reviewed with patient. All questions answered. Patient verbalized understanding, approved and agreed to plan of care. Given patient's current condition, I certify, in my opinion inpatient services greater than two midnights are medically necessary for this patient. Please see H&P and progress notes for additional information about patient's course of treatment. VTE Prophylaxis: Sub-Q Enoxaparin Kevin Alvarez MD Sep 27, 2016 17:40
[2016-09-27] MEDS ORDERED: SODIUM CHLORIDE 0.9% IV PRN (19:10)
[2016-09-27] MEDS ORDERED: LABETALOL IV PRN (19:10)
[2016-09-27 19:25] VITALS: PULSE 103
[2016-09-27 19:26] VITALS: BP 124/78; PULSE 103; RESP 20; O2SAT 97
[2016-09-27] MEDS ORDERED: Labetalol 5 mg/mL 4 mL Inj IVPUSH PRN (19:30)
[2016-09-27] MEDS ORDERED: 0.9% Sodium Chloride 250 ML ONE (21:01)
[2016-09-27] MEDS: 0.9% NaCl + KCl 20 mEq/L 1,000 ML IV SCH (21:20)
[2016-09-28 00:22] VITALS: BP 137/82; PULSE 84; RESP 18; O2SAT 96
[2016-09-28] MEDS: HYDROmorphone 1 mg/mL Inj IVPUSH PRN ×2 (00:41→04:37)
[2016-09-28] MEDS: 0.9% NaCl + KCl 20 mEq/L 1,000 ML IV SCH ×2 (03:40→13:19)
[2016-09-28 04:51] VITALS: BP 137/70; PULSE 73; RESP 20; O2SAT 98
--- NOTE | 2016-09-28 05:20 | NUR ---
Admission Pt admitted to [facility] at 1900 from ED. Pt able to transfer self to bed from [facility]. Pt oriented to room, call light and bed controls. Pt is FULL CODE. He says he "just wanted to go home and doesn't know why they are keeping him, every time he comes to ED he gets admitted." Explained he was going to be getting fluids and antibiotics at this time. He is discouraged. 0 c/o NV. He stated he had not had any diarrhea all day. He c/o left side abdominal pain that is intermit. 10/17. paged for PRN dilaudid. Administered with + effects. Pt afebrile this shift. IV to Rt AC patent. IV fluids started. Pt is up independently to BR. Call light within reach, bed in low position. care continues.
[2016-09-28 08:20] LABS: BASOPHILS % (AUTO) 0 % (0-3); EOSINOPHILS % (AUTO) 1.4 % (0-5); MONOCYTES % (AUTO) 7.3 % (4-12); Mean Corpuscular Hemoglobin 32.3 pg (27.0-35.0); Mean Corpuscular Volume 94.2 fL (81-100); NEUTROPHILS % (AUTO) 84.9 % (40-74); Platelet Count 195 bil/L (150-400)
[2016-09-28] MEDS ORDERED: Heparin 5,000 Unit/mL Inj SUBQ SCH (08:30)
[2016-09-28 10:06] VITALS: PULSE 87
[2016-09-28] MEDS ORDERED: ENAL10TA PO (11:06)
[2016-09-28] MEDS ORDERED: ACET325C PO (11:06)
[2016-09-28] MEDS ORDERED: OMEP40CA36 PO (11:06)
[2016-09-28 11:13] VITALS: BP 136/69; PULSE 78; RESP 20; O2SAT 98
--- NOTE | 2016-09-28 11:18 | PCM.DIMED ---
Discharge Instructions Date of Service Sep 28, 2016 Dates of Hospitalization Sep 27, 2016 at 17:46 Discharge Diagnosis Discharge Diagnosis Acute gastroenteritis of unclear etiology. Hypertension. hypokalemia, Hyponatremia Diet Discharge Diet: Heart Healthy Activity Discharge Activity: Limited until seen by PCP Call your provider Call your provider for: Fever or Chills, Shortness of breath, Bleeding, Chest pain, Vomitting, Excessive diarrhea, Weakness (unilateral) Patient Instructions Patient Instructions You were admitted to the hospital for elevation of the abdominal pain, nausea, vomiting, diarrhea. You were diagnosed with acute gastro-enteritis. You also were diagnosed with low potassium and low sodium blood level. You were treated with nothing by mouth, IV fluids, pain medications, IV antibiotics. We also send blood cultures and stool studies. Next day you expressed a desire to be discharged home. You do not want to stay in the hospital for IV fluid hydration and electrolyte monitoring. You should follow up with your primary care doctor for further evaluation of your abdominal pain, monitor your blood electrolytes levels. While in the hospital you were diagnosed with hypertension. You were started on blood pressure medication enalapril. Please follow-up with your primary care doctor for further monitoring and management of your hypertension. Follow up with your PCP in 1-2 days after discharge. Kevin Alvarez MD Sep 28, 2016 11:18
--- NOTE | 2016-09-28 11:46 | NUR ---
Social Work- Initial Assessment/Readiness for Discharge Data: See Initial Assessment. Pt is a 76 year old male admitted 09/27/16 for vomiting, diarrhea, fever, increase WBC per H&P. Pt is likely to discharge today or tomorrow, pt's PO intake has improved and vomiting is more controlled. Pt is eager to return home. Pt's payor is [facility] [employer]. Pt's PCP is Maryjo Pope MD. Pt's listed NOK is Trever Dunne, son, . Pt's identified support person is Sima Dunne, spouse, . Pt has no DPOA on file, SW provided paperwork at bedside to pt. Pt's readmit risk score is 2, low risk. SW met with pt and pt's brother Arjun at bedside regarding discharge plan, SW role explained. Pt alert and oriented x3. Pt resides at home with his spouse Sima [phone] where he is independent at baseline. Pt uses no DME at baseline and lives in a single story home with two steps to enter (pt has a ramp). Pt continues to drive. Pt has no HH history that he could recall. Pt has history at [facility]. Pt has no LTC or VA benefits. Pt to discharge home with Sima to transport via POV. No discharge needs identified at this time. SW will continue to follow. Assessment: Pt who is independent at baseline. Plan: Pt anticipated to discharge home with Sima to transport via POV. No discharge needs identified at this time. SW will continue to follow. BEVERLEY Michaels Addendum: 09/28/16 at 1151 by MARCELLUS LEMUS SS Amended: Links added.
--- NOTE | 2016-09-28 12:24 | PCM.DC.MED ---
Discharge Summary Date of Service Sep 28, 2016 Dates of Hospitalization Date of Hospital Admission Sep 27, 2016 at 17:46 Providers: Admitting Physician: Kevin Alvarez MD Primary Care Physician: Maryjo Pope MD Attending Physician: Kevin Alvarez MD Diagnosis at Time of Discharge Diagnosis at Time of Discharge Acute gastroenteritis of unclear etiology. Hypertension. hypokalemia, Hyponatremia Procedures XRay, CTs & MRIs CT chest, abdomen, pelvis IMPRESSION: 1. Mild fluid filled appearance of scattered small bowel loops, which could be related to vomiting or diarrhea. 2. Calcified pleural plaques consistent with asbestosis exposure. 3. Unchanged appearance of hepatic punctate low attenuation foci, too small to definitively characterize. Brief History Patient is 76-year-old male with past medical history of rectal adenocarcinoma status post surgery in September 2013, chemotherapy and radiation therapy that he finished several years ago, history of hypertension, hyperlipidemia, depression , anxiety, pulmonary asbestosis, GERD. Patient presented to emergency department with generalized weakness, abdominal pain, nausea, vomiting, loose stool. He has increased temperature 38.1, leukocytosis, hyponatremia, hypokalemia, mild normocytic anemia. His urine is normal. Patient lost weight over short period of time recently (30 [address]). CT scan of the chest abdomen and pelvis with contrast showed Mild fluid filled appearance of scattered small bowel loops, which could be related to vomiting or diarrhea, Calcified pleural plaques consistent with asbestosis exposure, Unchanged appearance of hepatic punctate low attenuation foci, too small to definitively characterize. Patient was started on IV fluids, IV vancomycin and Zosyn in the emergency department. As for now it is not clear why patient is losing weight and developed current symptoms. I will admit the patient to the hospital, continue with IV fluids, follow-up blood cultures, monitor on telemetry, replenish electrolytes, stool studies . Hospital Course Patient is 76-year-old male with past medical history of rectal adenocarcinoma status post surgery in September 2013, chemotherapy and radiation therapy that he finished several years ago, history of hypertension, hyperlipidemia, depression , anxiety, pulmonary asbestosis, GERD. Patient presented to emergency department with generalized weakness, abdominal pain, nausea, vomiting, loose stool. He has increased temperature 38.1, leukocytosis, hyponatremia, hypokalemia, mild normocytic anemia. His urine is normal. Patient lost weight over short period of time recently (30 [address]). CT scan of the chest abdomen and pelvis with contrast showed Mild fluid filled appearance of scattered small bowel loops, which could be related to vomiting or diarrhea, Calcified pleural plaques consistent with asbestosis exposure, Unchanged appearance of hepatic punctate low attenuation foci, too small to definitively characterize. Patient was started on IV fluids, IV vancomycin and Zosyn in the emergency department. As for now it is not clear why patient is losing weight and developed current symptoms. I will admit the patient to the hospital, continue with IV fluids, follow-up blood cultures, monitor on telemetry, monitor and replenish electrolytes, follow-up stool studies . Disposition: discharge in 2-3 days after patient improves. Plan of care discussed with ED physician; Labs, radiology tests, Tele and ECG reviewed. Plan of care, medication side effects, home medication, diagnostic procedures and available alternatives were discussed and reviewed with patient. All questions answered. Patient verbalized understanding, approved and agreed to plan of care. Given patient's current condition, I certify, in my opinion inpatient services greater than two midnights are medically necessary for this patient. Please see H&P and MD progress notes for additional information about patient's course of treatment. Exam Vital Signs (Last) Date Time Temp Pulse Resp B/P Pulse Ox O2 Delivery O2 Flow Rate FiO2 09/28/16 11:13 37.4 78 20 136/69 98 Room Air Test 09/27/16 13:26 09/27/16 15:39 09/27/16 16:29 09/28/16 08:10 Prothrombin Time 10.3sec (8.1-12.5) Prothromb Time International Ratio 0.96ratio Magnesium Level 1.8mg/dL (1.6-2.6) Total Bilirubin 0.7mg/dL (0.0-1.2) Aspartate Amino Transf (AST/SGOT) 16U/L (0-50) Alanine Aminotransferase (ALT/SGPT) 7U/L (0-44) Alkaline Phosphatase 76U/L (25-160) Troponin T < 0.010ug/L (0.0-0.011) Total Protein 7.5g/dL (6.4-8.4) Albumin 4.0g/dL (3.4-5.0) Lipase 11U/L (13-60) Lactic Acid Level 1.1mmol/L (0.4-2.0) Urine Color Yellow (YELLOW) Urine Appearance Clear (CLEAR,HAZY) Urine pH 5.5 (5.0-8.0) Urine Specific [place] 1.020 (1.003-1.035) Urine Protein 100mg/dL (NEG,TRACE) Urine Glucose (UA) Negativemg/dL (NEGATIVE) Urine Ketones Negativemg/dL (NEGATIVE) Urine Occult Blood Negative (NEGATIVE) Urine Nitrite Negative (NEGATIVE) Urine Bilirubin Negative (NEGATIVE) Urine Urobilinogen Normalmg/dL (NORMAL) Urine Leukocyte Esterase Negative (NEGATIVE) Urine RBC 0-2/hpf (0-2) Urine WBC 0-5/hpf (0-5) Urine Epithelial Cells Few/hpf (NONE-MOD) Urine Crystals None seen (NONE SEEN) Urine Bacteria Few/hpf (NONE-FEW) Urine Hyaline Casts None/lpf (NONE) Urine Granular Casts None seen (NONE SEEN) Urine Waxy Casts None seen (NONE SEEN) Urine Red Blood Cell Casts None seen (NONE SEEN) Urine White Blood Cell Casts None seen (NONE SEEN) Urine Mucus None seen (None Seen) Urine Trichomonas None seen (NONE SEEN) Urine Yeast None (NONE SEEN) Urinalysis Comment None Urine Culture Reflexed Not indicated White Blood Count 9.9th/mm3 (3.8-10.1) Red Blood Count 3.44mil/mm3 (4.40-5.80) Hemoglobin 11.1g/dL (13.8-17.2) Hematocrit 32.4% (41.0-50.0) Mean Corpuscular Volume 94.2fL (81-100) Mean Corpuscular Hemoglobin 32.3pg (27.0-35.0) Mean Corpuscular Hemoglobin Concent 34.3% (32.0-37.0) Red Cell Distribution Width 15.1% (12.3-15.4) Platelet Count 195bil/L (150-400) Neutrophils (%) (Auto) 84.9% (40-74) Lymphocytes (%) (Auto) 6.2% (14-46) Monocytes (%) (Auto) 7.3% (4-12) Eosinophils (%) (Auto) 1.4% (0-5) Basophils (%) (Auto) 0% (0-3) Sodium Level 130mEq/L (134-144) Potassium Level 3.8mEq/L (3.5-5.2) Chloride Level 99mEq/L (97-108) Carbon Dioxide Level 19mmol/L (18-29) Blood Urea Nitrogen 10mg/dL (8-27) Creatinine 0.98mg/dL (0.76-1.27) Estimat Glomerular Filtration Rate 79mL/min (>59) Glucose Level 86mg/dL (60-99) Calcium Level 8.3mg/dL (8.5-10.1) Discharge Medications Discharge Medications Enalapril Maleate (Enalapril Maleate) 10 Mg Tablet 10 MG PO DAILY Prescribed by: MARY KATE CAPONE MD Omeprazole (Omeprazole) 40 Mg Capsule.dr 40 MG PO DAILY Prescribed by: MARY KATE CAPONE MD As needed Acetaminophen (Acetaminophen) 325 Mg Capsule 500 MG PO Q6H PRN PRN For Pain Prescribed by: MARY KATE CAPONE MD Followup Plan Discharge Diet: Heart Healthy Discharge Activity: Limited until seen by PCP Patient Instructions You were admitted to the hospital for elevation of the abdominal pain, nausea, vomiting, diarrhea. You were diagnosed with acute gastro-enteritis. You also were diagnosed with low potassium and low sodium blood level. You were treated with nothing by mouth, IV fluids, pain medications, IV antibiotics. We also send blood cultures and stool studies. Next day you expressed a desire to be discharged home. You do not want to stay in the hospital for IV fluid hydration and electrolyte monitoring. You should follow up with your primary care doctor for further evaluation of your abdominal pain, monitor your blood electrolytes levels. While in the hospital you were diagnosed with hypertension. You were started on blood pressure medication enalapril. Please follow-up with your primary care doctor for further monitoring and management of your hypertension. Follow up with your PCP in 1-2 days after discharge. Kevin Alvarez MD Sep 28, 2016 12:24
--- NOTE | 2016-09-28 12:35 | PCM.DC.MED ---
Discharge Summary Date of Service Sep 28, 2016 Dates of Hospitalization Date of Hospital Admission Sep 27, 2016 at 17:46 Date of Discharge: Sep 28, 2016 Providers: Admitting Physician: Kevin Alvarez MD Primary Care Physician: Maryjo Pope MD Attending Physician: Kevin Alvarez MD Diagnosis at Time of Discharge Diagnosis at Time of Discharge Acute gastroenteritis, unclear etiology Weight loss- unclear etiology HTN Procedures XRay, CTs & MRIs CT chest, abdomen, pelvis IMPRESSION: 1. Mild fluid filled appearance of scattered small bowel loops, which could be related to vomiting or diarrhea. 2. Calcified pleural plaques consistent with asbestosis exposure. 3. Unchanged appearance of hepatic punctate low attenuation foci, too small to definitively characterize. Other Diagnostics Blood culture - pending. Hospital Course Patient is 76-year-old male with past medical history of rectal adenocarcinoma status post surgery in September 2013, chemotherapy and radiation therapy that he finished several years ago, history of hypertension, hyperlipidemia, depression , anxiety, pulmonary asbestosis, GERD. Patient presented to emergency department with generalized weakness, abdominal pain, nausea, vomiting, loose stool. He has increased temperature 38.1, leukocytosis, hyponatremia, hypokalemia, mild normocytic anemia. His urine is normal. Patient lost weight over short period of time recently (~[address] scan of the chest abdomen and pelvis with contrast showed Mild fluid filled appearance of scattered small bowel loops, which could be related to vomiting or diarrhea, Calcified pleural plaques consistent with asbestosis exposure, Unchanged appearance of hepatic punctate low attenuation foci, too small to definitively characterize. Patient was started on IV fluids, IV vancomycin and Zosyn in the emergency department. As for now it is not clear why patient has been losing weight and developed current symptoms. Patient was admitted to the hospital, we continue with IV fluids, follow-up blood cultures, monitored him on telemetry, replenished electrolytes. Next day patient felt better. He did not want any additional evaluations or treatments. He asked me to discharge him home. Patient would like to follow up with his PCP for further evaluation of his abdominal pain and weight loss. It appears patient partially improved sooner than was expected. I started him on Enalapril and Omeprazole. He will take Tylenol PRN for discomfort. Patient is aware that his blood cultures are still pending Patient Condition @ Discharge: good Discharge Disposition: home Discharge Activity: resume regular activity, patient was advised to avoid heavy physical work or exertion Discharge Diet: regular diet, heart healthy, low fat, low salt Information Provided to Patient: information about discharge medications Discharge Medications: I discussed with patient medication dosage, usage, goals of therapy, side effects, alternatives. During discharge patient was allert, oriented, able to make own informed decisions. We discussed possible severe side effects, adverse reactions, benefits, risks, alternatives of current and newly prescribed medications and diagnostic procedures. Patient verbalized understanding and agreed to current plan of care and discharge. TIME SPENT IN DISCHARGE ACTIVITY: Face to face activity greater then 30 minutes spent in discharge activity. 1. Discussed with patient re: discharge plan of care/treatment, and follow up care/services. 2. Patient agreed with discharge plan and further plan of care, all questions were answered/addressed, no further questions at the time of discharge. Exam Vital Signs (Last) Date Time Temp Pulse Resp B/P Pulse Ox O2 Delivery O2 Flow Rate FiO2 09/28/16 10:06 87 09/28/16 04:51 36.8 20 137/70 98 Room Air Test 09/27/16 13:26 09/27/16 15:39 09/27/16 16:29 09/28/16 08:10 Prothrombin Time 10.3sec (8.1-12.5) Prothromb Time International Ratio 0.96ratio Magnesium Level 1.8mg/dL (1.6-2.6) Total Bilirubin 0.7mg/dL (0.0-1.2) Aspartate Amino Transf (AST/SGOT) 16U/L (0-50) Alanine Aminotransferase (ALT/SGPT) 7U/L (0-44) Alkaline Phosphatase 76U/L (25-160) Troponin T < 0.010ug/L (0.0-0.011) Total Protein 7.5g/dL (6.4-8.4) Albumin 4.0g/dL (3.4-5.0) Lipase 11U/L (13-60) Lactic Acid Level 1.1mmol/L (0.4-2.0) Urine Color Yellow (YELLOW) Urine Appearance Clear (CLEAR,HAZY) Urine pH 5.5 (5.0-8.0) Urine Specific [place] 1.020 (1.003-1.035) Urine Protein 100mg/dL (NEG,TRACE) Urine Glucose (UA) Negativemg/dL (NEGATIVE) Urine Ketones Negativemg/dL (NEGATIVE) Urine Occult Blood Negative (NEGATIVE) Urine Nitrite Negative (NEGATIVE) Urine Bilirubin Negative (NEGATIVE) Urine Urobilinogen Normalmg/dL (NORMAL) Urine Leukocyte Esterase Negative (NEGATIVE) Urine RBC 0-2/hpf (0-2) Urine WBC 0-5/hpf (0-5) Urine Epithelial Cells Few/hpf (NONE-MOD) Urine Crystals None seen (NONE SEEN) Urine Bacteria Few/hpf (NONE-FEW) Urine Hyaline Casts None/lpf (NONE) Urine Granular Casts None seen (NONE SEEN) Urine Waxy Casts None seen (NONE SEEN) Urine Red Blood Cell Casts None seen (NONE SEEN) Urine White Blood Cell Casts None seen (NONE SEEN) Urine Mucus None seen (None Seen) Urine Trichomonas None seen (NONE SEEN) Urine Yeast None (NONE SEEN) Urinalysis Comment None Urine Culture Reflexed Not indicated White Blood Count 9.9th/mm3 (3.8-10.1) Red Blood Count 3.44mil/mm3 (4.40-5.80) Hemoglobin 11.1g/dL (13.8-17.2) Hematocrit 32.4% (41.0-50.0) Mean Corpuscular Volume 94.2fL (81-100) Mean Corpuscular Hemoglobin 32.3pg (27.0-35.0) Mean Corpuscular Hemoglobin Concent 34.3% (32.0-37.0) Red Cell Distribution Width 15.1% (12.3-15.4) Platelet Count 195bil/L (150-400) Neutrophils (%) (Auto) 84.9% (40-74) Lymphocytes (%) (Auto) 6.2% (14-46) Monocytes (%) (Auto) 7.3% (4-12) Eosinophils (%) (Auto) 1.4% (0-5) Basophils (%) (Auto) 0% (0-3) Sodium Level 130mEq/L (134-144) Potassium Level 3.8mEq/L (3.5-5.2) Chloride Level 99mEq/L (97-108) Carbon Dioxide Level 19mmol/L (18-29) Blood Urea Nitrogen 10mg/dL (8-27) Creatinine 0.98mg/dL (0.76-1.27) Estimat Glomerular Filtration Rate 79mL/min (>59) Glucose Level 86mg/dL (60-99) Calcium Level 8.3mg/dL (8.5-10.1) Discharge Medications Discharge Medications Enalapril Maleate (Enalapril Maleate) 10 Mg Tablet 10 MG PO DAILY Prescribed by: MARY KATE CAPONE MD Omeprazole (Omeprazole) 40 Mg Capsule.dr 40 MG PO DAILY Prescribed by: MARY KATE CAPONE MD As needed Acetaminophen (Acetaminophen) 325 Mg Capsule 500 MG PO Q6H PRN PRN For Pain Prescribed by: MARY KATE CAPONE MD Followup Plan Discharge Diet: Heart Healthy Discharge Activity: Limited until seen by PCP Follow-up with PCP in: Other (1-2 days) copies to: Maryjo Pope MD, Andriy MD Sep 28, 2016 11:03
--- NOTE | 2016-09-28 13:45 | NUR ---
Social Work- Discharge Data: EMR reviewed. Pt is a 76 year old male admitted 09/27/16 for vomiting, diarrhea, fever, increase WBC per H&P. Pt to discharge today, orders are active. Pt to discharge home with family to transport via POV. No discharge needs identified. Assessment: Pt who is independent at baseline. Plan: Pt anticipated to discharge home with family to transport via POV. No discharge needs identified. BEVERLEY Michaels
--- NOTE | 2016-09-28 14:34 | NUR ---
Discharge Pt discharged at 1420 to private vehicle with family, was wanting to leave all day and wanted IV and telemetry off before discharge was finalized. IV removed intact. Pt upset and wasn't sure why he was even here. Pt given new rx's, care notes and discharge instructions. Pt understands he needs to f/u with PCP in 1-2 days. No pain, no N/V or BM's during this shift. VSS, MATOS, A&O x 3. All questions answered and has all belongings.
[2016-09-29] MEDS ORDERED: Pantoprazole 40 mg ER24 Tablet PO SCH (07:30)
== END 2016-09-28 14:25 | disposition home or self-care (01) | DRG 392 ==
LOC: SED 13:01 → OSC 17:46
PROVIDERS: ADMIT Internal Medicine; ATTEND Internal Medicine
DX: K52.9 Noninfective gastroenteritis and colitis, unspecified (principal); E87.1 Hypo-osmolality and hyponatremia; J44.9 Chronic obstructive pulmonary disease, unspecified; I10 Essential (primary) hypertension; E78.5 Hyperlipidemia, unspecified; F17.210 Nicotine dependence, cigarettes, uncomplicated; E87.6 Hypokalemia

== ENCOUNTER 2016-12-06 01:15 | Emergency (ER) | payer OTHER, MEDICARE ==
[~2016-12-06] VITALS: Ht 170.2 cm; Wt 59.1 kg
[~2016-12-06 01:15] MED LIST changes: +ACET325C PO; -CEFD300C3 PO; +ENAL10TA PO; -METO25TA99 PO; -NICO1PAT6 TOPICAL; +OMEP40CA36 PO; -OSEL30CA PO; -POLY17PO6 PO; -QUET25TA73 PO; -ZIT250 PO; -[UNRECOGNIZED DRUG - CODE] PO
[2016-12-06 01:20] VITALS: BP 107/52; PULSE 59; RESP 18; O2SAT 99
--- NOTE | 2016-12-06 01:23 | ED.REPORT ---
HPI-Abd Pain M 40 and Over Date of Service Dec 06, 2016 ED Provider: Cruz Deshpande MD A 76 year old male with a history of hypertension, hyperlipidemia, recurrent hyponatremia and dehydration, gastroenteritis and rectal adenocarcinoma status post diverting loop ileostomy in September 2013 is brought to the ED via EMS due to a syncopal episode. The pt began experiencing abdominal pain, nausea, vomiting and diarrhea today. He then experienced a syncopal episode with incontinence of stool while attempting to use the commode. Per pt's , the pt has a history of similar episodes for the last four years. Nursing Notes Stated Complaint: ABDOMINAL PAIN, DIARRHEA Chief Complaint: Male Abdominal Pain Nursing Notes Reviewed: Yes Allergies: Coded Allergies: No Known Allergies (Unverified , 07/18/16) Scheduled Enalapril Maleate (Enalapril Maleate) 10 Mg Tablet 10 MG PO DAILY Omeprazole (Omeprazole) 40 Mg Capsule.dr 40 MG PO DAILY Scheduled PRN Acetaminophen (Acetaminophen) 325 Mg Capsule 500 MG PO Q6H PRN PRN For Pain Ondansetron ODT (Ondansetron ODT) 8 Mg Tab.rapdis 8 MG PO QID PRN PRN For Nausea General Time Seen by MD: 01:22 Chief Complaint Abdominal pain Hx Obtained From: Patient, EMS Arrived By: Ambulance Sudden in Onset?: No Onset Occurred: 13 - 16 hours ago Symptom Duration: Since onset Recent Healthcare: Recent doctor visit, Recent hospitalization Similar Sx Previous: No Past Medical History Past Medical History 1. Rectal adenocarcinoma status post diverting loop ileostomy in September 2013 2. Recurrent episodes of hyponatremia and dehydration 3. Hypertension. 4. Hyperlipidemia. 5. Depression. 6. Anxiety. 7. Insomnia. 8. Pulmonary asbestosis. 9. Bilateral pleural plaques. 10. GERD 11. Hearing problems COPD arthritis gastroenteritis Past Surgical History Abdominal surgery for colon and rectal cancer. Hernia repair x2. Left hand surgery. Reports: Appendectomy Smoking History Current Every Day Smoker Social History Alcohol Use: "Social" Drug Use: Denies drug use Other Social History: Good social support, Local resident Occupation lives with 09/27/2016 Ambulatory Status Independent Review of Systems Respiratory: Denies: Non-productive cough, Shortness of breath Cardiovascular: Denies: Chest pain GI: Reports: Abdominal pain, Diarrhea, Nausea, Vomiting Male: Reports Incontinence (stool) Musculoskeletal: Denies: Back pain, Neck pain Complete sys rev & neg: except as marked. Skin: Denies Rash Neurologic: Reports: Syncope Physical Exam Initial Vital Signs Vital Signs (First) Date Time Temp Pulse Resp B/P Pulse Ox O2 Delivery O2 Flow Rate FiO2 12/06/16 01:20 59 18 107/52 99 Room Air 12/06/16 05:15 37.1 Initial VS: Reviewed General/Constitutional: Awake, Alert Respiratory / Chest: Atraumatic, Breath sounds NL, Breath sounds = bilat, No respiratory distress Cardiovascular: Heart rate NL, Regular rhythm, Heart sounds NL Abdomen: Soft, Non-tender Bowel Sounds / Distention: Positive: Bowel sounds hyperactive vertically oriented paramedian scar on right from prior surgical operation Back: Atraumatic, Full range of motion Head / Eyes: Atraumatic, Normocephalic, PERRL, EOMI ENT: Atraumatic, Airway patent Mouth: Positive: Mucous membranes dry Skin: Atraumatic, No rash, Warm, Dry pale extremities appear vasoconstricted and cool distally Neurologic: Oriented X3, Speech NL, No motor deficits, No sensory deficits Neck: Atraumatic, Supple, Full range of motion Upper Extremity / MS: Atraumatic, Full range of motion Lower Extremity / Pelvis / MS: Atraumatic, Full range of motion Psychiatric: Affect NL, Mood NL Interpretation & Diagnostics Lab Results Interpretation Result Diagram: 12/06/16 0144 12/06/16 0144 Test 12/06/16 01:44 12/06/16 04:27 White Blood Count 6.2th/mm3 (3.8-10.1) Red Blood Count 3.58mil/mm3 (4.40-5.80) Hemoglobin 11.7g/dL (13.8-17.2) Hematocrit 34.4% (41.0-50.0) Mean Corpuscular Volume 96.1fL (81-100) Mean Corpuscular Hemoglobin 32.7pg (27.0-35.0) Mean Corpuscular Hemoglobin Concent 34.0% (32.0-37.0) Red Cell Distribution Width 15.7% (12.3-15.4) Platelet Count 288bil/L (150-400) Neutrophils (%) (Auto) 70.0% (40-74) Lymphocytes (%) (Auto) 20.4% (14-46) Monocytes (%) (Auto) 6.7% (4-12) Eosinophils (%) (Auto) 2.6% (0-5) Basophils (%) (Auto) 0% (0-3) Hold Purple Top Tube Received (Received) Prothrombin Time 9.8sec (8.1-12.5) Prothromb Time International Ratio 0.92ratio Hold Blue Top Tube Received (Received) Sodium Level 129mEq/L (134-144) Potassium Level 3.6mEq/L (3.5-5.2) Chloride Level 94mEq/L (97-108) Carbon Dioxide Level 16mmol/L (18-29) Blood Urea Nitrogen 16mg/dL (8-27) Creatinine 1.34mg/dL (0.76-1.27) Estimat Glomerular Filtration Rate 55mL/min (>59) Glucose Level 174mg/dL (60-99) Lactic Acid Level 1.7mmol/L (0.4-2.0) Calcium Level 9.4mg/dL (8.5-10.1) Magnesium Level 1.9mg/dL (1.6-2.6) Total Bilirubin 0.3mg/dL (0.0-1.2) Aspartate Amino Transf (AST/SGOT) 21U/L (0-50) Alanine Aminotransferase (ALT/SGPT) 18U/L (0-44) Alkaline Phosphatase 80U/L (25-160) Total Protein 7.2g/dL (6.4-8.4) Albumin 4.1g/dL (3.4-5.0) Lipase 20U/L (13-60) Hold [place] Top Tube Received (Received) Hold [place] Top Tube Received (Received) Urine Color Yellow (YELLOW) Urine Appearance Hazy (CLEAR,HAZY) Urine pH 5.5 (5.0-8.0) Urine Specific [place] 1.016 (1.003-1.035) Urine Protein Negativemg/dL (NEG,TRACE) Urine Glucose (UA) Negativemg/dL (NEGATIVE) Urine Ketones Negativemg/dL (NEGATIVE) Urine Occult Blood Negative (NEGATIVE) Urine Nitrite Negative (NEGATIVE) Urine Bilirubin Negative (NEGATIVE) Urine Urobilinogen Normalmg/dL (NORMAL) Urine Leukocyte Esterase Negative (NEGATIVE) Urine RBC 0-2/hpf (0-2) Urine WBC 0-5/hpf (0-5) Urine Epithelial Cells Occasional/hpf (NONE-MOD) Urine Crystals None seen (NONE SEEN) Urine Bacteria Few/hpf (NONE-FEW) Urine Hyaline Casts 5/20/lpf (NONE) Urine Granular Casts None seen (NONE SEEN) Urine Waxy Casts None seen (NONE SEEN) Urine Red Blood Cell Casts None seen (NONE SEEN) Urine White Blood Cell Casts None seen (NONE SEEN) Urine Mucus Present (None Seen) Urine Trichomonas None seen (NONE SEEN) Urine Yeast None (NONE SEEN) Urinalysis Comment None Urine Culture Reflexed Not indicated ECG Interpretation ECG Interpretation: normal sinus rhythm with a rate of 59 prolonged KS interval 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 This is one of multiple similar episodes in the past. He had a syncopal or near syncopal episode tonight. His vomiting is been brought under control readily here, and he has had no further diarrheal episodes after one episode here. He is received 3 L of IV fluid over about three hours time and feels better. Family is comfortable taking him home, and he is directly requesting to be discharged. Advised to return promptly if worse and discharged now in improved condition. Source of Hx: Old records Time of Eval: 04:18 Patient Status: Condition improved Re-Evaluation/Progress Note: Pt rechecked, who is resting comfortably. The diagnosis and plan for discharge are discussed. The pt understands and agrees with the plan. All questions are addressed at this time. Counseled Regarding: Diagnosis, Lab results, Need for follow-up, When/why to return to ED Discharge & Departure Primary Impression: Vomiting Vomiting type: unspecified Vomiting Intractability: non-intractable Nausea presence: with nausea Qualified Code: R11.2 - Nausea with vomiting, unspecified Additional Impressions: Hyponatremia Diarrhea Diarrhea type: unspecified type Qualified Code: R19.7 - Diarrhea, unspecified Syncope Dehydration Disposition: Home Vital Signs - All Vital Signs Date Time Temp Pulse Resp B/P Pulse Ox O2 Delivery O2 Flow Rate FiO2 12/06/16 05:15 37.1 80 16 132/70 94 Room Air 12/06/16 01:20 59 18 107/52 99 Room Air )( All Prior VS Reviewed: Yes Condition: Stable Patient Instructions: Acute Nausea and Vomiting (ED), Chronic Diarrhea (ED) Additional Instructions: Ondansetron up to four times daily if needed for nausea. Use electrolyte replacement solutions such as Pedialyte for fluid replacement. Light liquid diet for now including broth and simple starches, and advance only slowly as tolerated. Return if any immediate issues. Call your doctor today for follow-up today or tomorrow. Referrals: Maryjo Pope MD (PCP) Scribe Attestation Portions of this note were transcribed by Miguel Vasquez. I, Dr. Deshpande personally performed the history, physical exam and medical decision-making; I reviewed and confirmed the accuracy of the information in the transcribed note. copies to: Maryjo Pope MD, Christopher W MD Dec 06, 2016 01:23 MIGUEL VASQUEZ Dec 06, 2016 01:34
[2016-12-06] MEDS ORDERED: Ondansetron 2 mg/mL 2 mL Inj ONE (01:35)
[2016-12-06] MEDS ORDERED: 0.9% Sodium Chloride 1,000 ML IV ONE ×3 (01:53→03:55)
[2016-12-06] MEDS ORDERED: Ondansetron 2 mg/mL 2 mL Inj IVPUSH ONE (01:55)
[2016-12-06 02:13] LABS: BASOPHILS % (AUTO) 0 % (0-3); EOSINOPHILS % (AUTO) 2.6 % (0-5); MONOCYTES % (AUTO) 6.7 % (4-12); Mean Corpuscular Hemoglobin 32.7 pg (27.0-35.0); Mean Corpuscular Volume 96.1 fL (81-100); Platelet Count 288 bil/L (150-400)
[2016-12-06 02:32] LABS: INR 0.92 ratio
[2016-12-06 02:33] LABS: Magnesium 1.9 mg/dL (1.6-2.6)
[2016-12-06] MEDS ORDERED: ONDA8TAB10 PO (04:23)
[2016-12-06 04:58] LABS: APPEARANCE,URINE HAZY (CLEAR,HAZY); COLOR,URINE YELLOW (YELLOW); OCCULT BLOOD,URINE NEGATIVE (NEGATIVE); PH,URINE 5.5 (5.0-8.0); UROBILINOGEN,URINE NORMAL (NORMAL)
[2016-12-06 05:15] VITALS: BP 132/70; PULSE 80; RESP 16; O2SAT 94
== END 2016-12-06 05:10 | disposition home or self-care (01) ==
LOC: SED 01:15 → EDBD 01:15 → SED 05:10
DX: R11.2 Nausea with vomiting, unspecified (principal); E87.1 Hypo-osmolality and hyponatremia; R19.7 Diarrhea, unspecified; R55 Syncope and collapse; E86.0 Dehydration; I10 Essential (primary) hypertension; E78.5 Hyperlipidemia, unspecified; F32.9 Major depressive disorder, single episode, unspecified; F41.9 Anxiety disorder, unspecified; K21.9 Gastro-esophageal reflux disease without esophagitis
CPT/HCPCS: 36415; 80053; 81000; 83605; 83690; 83735; 85025; 85610; 87040; 93005; 96361; 96374; 99285; J2405; J7030